=== PATIENT | female | born 1955 | race Caucasian/White ===

== ENCOUNTER → 2019-10-01 08:46 | Outpatient (CLI) | payer MEDICARE, SELFPAY ==
--- NOTE | ~2019-10-01 | MMUS_ITS ---
EXAMINATION: MM diagnostic cody BI w eusebio, US breast LT limited HISTORY: Possible left nipple discharge, family history of breast cancer in two sisters TECHNIQUE: Craniocaudal, mediolateral, and mediolateral oblique 3-D tomosynthesis images of the breas ts were performed and synthetic 2-D images were generated. CAD analysis was submitted and interpreted . High resolution limited left breast ultrasound was performed. COMPARISON: 07/19/2018, 06/22/2017, 06/07/2017, 04/14/2015, 12/20/2012 BREAST PARENCHYMAL COMPOSITION: The breasts are heterogeneously dense, which may obscure small masses . FINDINGS: MAMMOGRAPHIC FINDINGS: There is no evidence of suspicious mass, calcification, or architectural distortion in either breast to suggest malignancy. There has been no suspicious interval change. No mammographic correlate is i dentified for the possible left nipple discharge. ULTRASOUND: No suspicious sonographic correlate is identified for the patient's left nipple discharge. IMPRESSION: 1. No specific mammographic or sonographic correlate is identified for the patient's possible left ni pple discharge. Further evaluation at this time should be based on clinical assessment. Continued fol low-up physical examination is recommended. 2. Recommend routine screening mammography in one year. BI-RADS Category 1: Negative Reviewed, dictated and finalized at location A. IMPRESSION: 1. No specific mammographic or sonographic correlate is identified for the parul ent's possible left nipple discharge. Further evaluation at this time should be based on clinical assessment. Continued follow-up physical examination is randee mmended. 2. Recommend routine screening mammography in one year. BI-RADS Category 1: Negative
== END ==
PROVIDERS: Visit Provider Advanced Practice Midwife
DX: N64.59 Other signs and symptoms in breast (principal); N64.89 Other specified disorders of breast
CPT/HCPCS: 76642; 77062; 77066; G0279

== ENCOUNTER → 2020-09-21 08:08 | Outpatient (CLI) | payer MEDICARE, SELFPAY ==
--- NOTE | ~2020-09-21 | XR_ITS ---
EXAMINATION: XR abdomen/kub 1V EXAM DATE: 09/21/2020 09:02 INDICATION: Microscopic hematuria. TECHNIQUE: Frontal projection(s) of the abdomen for interpretation. There is no prior study for stevie sutherland. FINDINGS: There is moderate amount of colonic stool and gas. No small bowel dilation, nonobstructiv e bowel gas pattern. There are no suspicious calcifications identified. There is no organomegaly suspected. The bones are unremarkable. Lung bases unremarkable. IMPRESSION: Unremarkable abdomen x-ray exam. Reviewed, dictated and finalized at location A. ING SUIT MAKER
--- NOTE | ~2020-09-21 | CT_ITS ---
EXAMINATION: CT abdomen pelvis wo/w con EXAM DATE: 09/21/2020 09:02 INDICATION: Microscopic hematuria. TECHNIQUE: Spiral CT of the abdomen and pelvis was performed without contrast. The patient was then injected with small bolus intravenous Omnipaque 350, followed by delay of approximately 10 minutes to allow collecting system to opacify. A post contrast scan abdomen and pelvis was performed during inj ection of remaining contrast. A total of 130 cc intravenous contrast was administered. The dose-jerome th product (DLP) for this examination was 1311.53 mGy-cm. The exposure was tailored according to pat ient size (auto mA exposure control), and iterative reconstruction (ASIR) was used as additional dose reduction technique. Comparison is made to prior examination from 01/21/2016. FINDINGS: There is no hydronephrosis or nephrolithiasis. The kidneys enhance symmetrically. There a re no suspicious renal lesions. The calyces and opacified portions of ureters are unremarkable, with out filling defects or focal suspicious strictures. The bladder is unremarkable. The uterus is not identified and has likely been surgically resected. The liver, spleen, adrenal glands and pancreas are unremarkable. Gallbladder is unremarkable. No bi liary obstruction. There is no retroperitoneal or pelvic lymphadenopathy. There is small umbilical f at-containing hernia. The appendix is normal. The stomach and small bowel are unremarkable. There is expected amount of c olonic stool. No free intraperitoneal gas. The heart is normal in size. There are no pericardial or pleural effusions. Small amount of lingular atelectasis. Moderate disc disease at L2-3. There a re no osteoblastic or osteolytic lesions identified. IMPRESSION: 1. No suspicious genitourinary findings. Reviewed, dictated and finalized at location A. WARE CONFIGURATION ANALYST
[2020-09-21 08:37] LABS: Estimated Glomerular Filt Rate 50
== END ==
PROVIDERS: PCP Internal Medicine; Visit Provider Nurse Practitioner Family
DX: R31.29 Other microscopic hematuria (principal)
CPT/HCPCS: 74018; 74178; Q9967

== ENCOUNTER → 2020-11-27 12:15 | Outpatient (CLI) | payer MEDICARE, SELFPAY ==
--- NOTE | ~2020-11-27 | MM_ITS ---
EXAMINATION: MM screening cody BI w eusebio HISTORY: Screening TECHNIQUE: Craniocaudal and mediolateral oblique 3-D tomosynthesis images were obtained and synthetic 2-D images were generated. CAD analysis was submitted and interpreted. COMPARISON: Comparison to multiple prior studies sequentially, with oldest reviewed study dated 05/24. BREAST PARENCHYMAL COMPOSITION: The breasts are heterogeneously dense, which may obscure small masses . FINDINGS: There is no evidence of suspicious mass, calcification, or architectural distortion to sugg est malignancy in either breast. There has been no suspicious interval change. IMPRESSION: 1. No mammographic evidence of malignancy. 2. Recommend routine screening mammography in one year. BI-RADS Category 1: Negative Reviewed, dictated and finalized at location A.
== END ==
PROVIDERS: Visit Provider Advanced Practice Midwife
DX: Z12.31 Encounter for screening mammogram for malignant neoplasm of breast (principal)
CPT/HCPCS: 77063; 77067

== ENCOUNTER 2021-04-30 14:19 | Outpatient (CLI) | payer MEDICARE, SELFPAY ==
--- NOTE | ~2021-04-30 | CT_ITS ---
EXAMINATION: CT sinus wo con DATE: 04/30/2021 14:34 INDICATION: Headaches. Chronic sinusitis. TECHNIQUE: Computed tomography (CT) of the paranasal sinuses was performed without contrast. Iterativ e reconstruction technique was employed. Exam dose: 302.19 mGy-cm total exam DLP. COMPARISON: None FINDINGS: The nasal septum deviates rightward anteriorly and minimally leftward more posteriorly. There nasal turbinates are moderately prominent but symmetric in size. There is mild focal soft tissue thickening along the lower medial right maxillary sinus wall. 2.2 mm anterior wall left maxillary mucous retention cyst. Minimal mucoperiosteal thickening along the posterior wall of the left sphenoid sinus. The paranasal sinuses are otherwise normally developed and aerated. The ostiomeatal units are normally developed and patent. The mastoid air cells are normally developed and aerated bilaterally. Middle and inner ear apparatus appear normal bilaterally. IMPRESSION: Nasal septal deviation Moderately prominent but symmetric nasal turbinates Mild focal soft tissue thickening along the lower medial right maxillary sinus and 2.2 mm anterior wa ll left maxillary mucous retention cyst Minimal mucoperiosteal thickening along the posterior wall of the left sphenoid sinus Reviewed, dictated and finalized at Location A. Reviewed, dictated and finalized at location A. IMPRESSION: Nasal septal deviation Moderately prominent but symmetric nasal turbinates Mild focal soft tissue thickening along the lower medial right maxillary sinus and 2.2 mm anterior wall left maxillary mucous retention cyst Minimal mucoperiosteal thickening along the posterior wall of the left sphenoid sinus
== END 2021-04-30 14:20 | disposition home or self-care (01) ==
LOC: ANHIMG 14:22
PROVIDERS: PCP Internal Medicine; Visit Provider Otolaryngology
DX: J32.9 Chronic sinusitis, unspecified (principal); J34.2 Deviated nasal septum
CPT/HCPCS: 70486

== ENCOUNTER → 2021-06-24 11:10 | Outpatient (CLI) | payer MEDICARE, SELFPAY ==
--- NOTE | ~2021-06-24 | XR_ITS ---
XR chest 2V 06/24/2021 11:37 Indication: Cough Procedure: 2 view chest Comparison: 05/27/2019 Findings: There is lingular airspace disease, consistent with pneumonia. Heart size normal. Right melody g clear. No significant effusion or pneumothorax. Impression: 1: Lingular pneumonia. Reviewed, dictated and finalized at location B. F DEPUTY COURT CLERK Impression: 1: Lingular pneumonia.
== END ==
PROVIDERS: PCP Internal Medicine; Visit Provider Internal Medicine
DX: J18.9 Pneumonia, unspecified organism (principal)
CPT/HCPCS: 71046

== ENCOUNTER → 2022-01-04 12:29 | Outpatient (CLI) | payer MEDICARE, SELFPAY ==
--- NOTE | ~2022-01-04 | MM_ITS ---
EXAMINATION: MM screening cody BI w eusebio HISTORY: Screening TECHNIQUE: Craniocaudal and mediolateral oblique 3-D tomosynthesis images were obtained and synthetic 2-D images were generated. CAD analysis was submitted and interpreted. COMPARISON: Comparison to multiple prior studies sequentially, with oldest reviewed study dated 05/24. BREAST PARENCHYMAL COMPOSITION: The breasts are heterogenously dense, which may obscure small masses FINDINGS: There is no evidence of suspicious mass, calcification, or architectural distortion to sugg est malignancy in either breast. There has been no suspicious interval change. IMPRESSION: 1. No mammographic evidence of malignancy. 2. Recommend routine screening mammography in one year. BI-RADS Category 1: Negative Reviewed, dictated and finalized at location A.
== END ==
PROVIDERS: PCP Advanced Practice Midwife; Visit Provider Advanced Practice Midwife
DX: Z12.31 Encounter for screening mammogram for malignant neoplasm of breast (principal)
CPT/HCPCS: 77063; 77067

== ENCOUNTER → 2022-02-18 10:49 | Outpatient (CLI) | payer MEDICARE, SELFPAY ==
--- NOTE | ~2022-02-18 | US_ITS ---
EXAMINATION: US renal BI DATE: 02/18/2022 11:12 INDICATION: Chronic kidney disease TECHNIQUE: Multiple grayscale and Doppler ultrasound images of the kidneys were obtained. COMPARISON: 11/30/2009 FINDINGS: The right kidney measures 8.8 x 4.2 x 5.1 cm. The left kidney measures 9.7 x 5.2 x 4.8 cm. The kidneys demonstrate normal parenchymal echogenicity. There is no hydronephrosis. The bladder is i ncompletely distended but unremarkable in appearance. IMPRESSION: 1. Normal kidneys without hydronephrosis. Reviewed, dictated and finalized at location L.
== END ==
LOC: EXPGOSH 10:53 → EXPGOSHRAD 14:47
PROVIDERS: PCP Internal Medicine; Visit Provider Internal Medicine
DX: N18.30 Chronic kidney disease, stage 3 unspecified (principal)
CPT/HCPCS: 76775

== ENCOUNTER 2022-03-15 14:35 | Emergency (ER) | payer MEDICARE, SELFPAY ==
[2022-03-15] VITALS (15 sets, daily range): BP systolic 110–164; BP diastolic 72–89; PULSE 56–77; RESP 14–28; TEMP 36.6; O2SAT 95–100
--- NOTE | ~2022-03-15 | XR_ITS ---
EXAMINATION: XR chest 2V DATE: 03/15/2022 15:22 INDICATION: Midsternal chest pain TECHNIQUE: Frontal and lateral views of the chest are obtained COMPARISON: 06/24/2021 FINDINGS: The lungs are free of acute opacities. No pleural effusion or pneumothorax. The cardiomedia stinal silhouette is normal. There is moderate thoracic spondylosis. IMPRESSION: 1. No acute cardiopulmonary abnormality. Reviewed, dictated and finalized at location B.
--- NOTE | 2022-03-15 14:37 | ECG_ITS ---
Measurements Intervals [place] Rate: 74 P: 51 [place]: 155 QRS: 33 QRSD: 86 T: 29 QT: 358 QTc: 398 Interpretive Statements SINUS RHYTHM NORMAL ECG NO PREVIOUS ECG AVAILABLE FOR COMPARISON Electronically Signed On 03-15-2022 18:28:26 CDT by Adair Fuchs M.D.
[2022-03-15 15:19] LABS: INR 1.1; Prothrombin Time 14.2 Seconds (11.1-14.7)
[2022-03-15] MEDS: ASPIRIN 81 MG CHEWABLE TABLET 324 MG PO (15:53)
[2022-03-15 16:02] LABS: Basophils Absolute Auto 0.1 K/mm3 (0.0-0.1); Eosinophils Absolute Auto 0.1 K/mm3 (0-0.3); Eosinophils Percent Auto 1.4 % (0-4.4); Hemoglobin 13.2 g/dL (12.0-15.0); Immature Granulocyte Absolute 0.03 K/mm3 (0.00-0.031); Immature Granulocyte Percent A 0.4 % (0-0.5); Lymphocytes Absolute Auto 1.87 K/mm3 (0.9-3.2); Lymphocytes Percent Auto 25.7 % (18.3-44.2); Mean Corpuscular Hemoglobin 29.7 pg (26-34); Mean Corpuscular Volume 90.1 fl (80-100); Mean Platelet Volume 8.9 fl (7.4-10.4); Monocytes Absolute Auto 0.6 K/mm3 (0.1-0.6); Monocytes Percent Auto 8.1 % (2.6-8.5); Neutrophils Absolute Auto 4.6 K/mm3 (1.3-6.7); Neutrophils Percent Auto 63.4 % (45.5-73.1); Platelet Count Result 220 k/mm3 (150-375); Red Blood Count 4.44 M/mm3 (4.2-5.4); Red Cell Distribution Width 12.2 % (11.5-14.5); White Blood Count 7.3 K/mm3 (4.5-10.0)
--- NOTE | 2022-03-15 16:04 | ED.CHESTPAIN ---
HPI - Chest Pain General Chief Complaint: Chest Pain Stated Complaint: epigastric pain Time Seen by Provider: 03/15/22 14:44 History of Present Illness HPI narrative: Patient is a 66-year-old female who presents ER with concerns for possible coronary artery disease Patient reports she began having some low back pain yesterday as well as some intermittent upper back pain today. This been associated with burning epigastric discomfort that goes up into her throat. No exertional pain. She has tried Tums last night and today without improvement. No history of heart disease. No dyspnea on exertion. No diaphoresis. Symptoms are worse with laying back. Related Data Allergies Allergy/AdvReac Type Severity Reaction Status Date / Time TAPE Allergy Mild RASH Uncoded 02/03/22 10:10 Review of Systems Review of Systems: All systems reviewed & are unremarkable except as noted in HPI and below Constitutional: Constitutional: Denies chills and Denies fever(s) ENT: Denies as per HPI, Denies nasal congestion and Denies sore throat Cardiovascular: Cardiovascular: Reports chest pain, Denies rapid heart rate and Denies radiating jaw, neck or arm pain Respiratory: Respiratory: Denies cough and Denies dyspnea Gastrointestinal: Gastrointestinal: Denies abdominal pain, Reports heartburn, Denies nausea and Denies vomiting Musculoskeletal: Musculoskeletal: Reports back pain, Denies arthralgias and Denies joint swelling PMFSH Past Medical History Medical History Anxiety CKD (chronic kidney disease) stage 3, GFR 30-59 ml/min Dyslipidemia Encounter for cosmetic surgery History of mitral valve prolapse Osteopenia Tobacco use Surgical History Surgical History (Updated 03/15/22 @ 19:44 by Gilles Friedman MD) History of hysterectomy History of tonsillectomy Social History Social History Years smoked: 40 Smoking status: Current every day smoker (5 cigaretes a day) Tobacco type: cigarettes Second hand tobacco smoke exposure: Yes Alcohol intake: current Drinks per week: 2 Substance use: current Substance use type: marijuana Exam Narrative: GENERAL: Well-appearing, well-nourished, and in no acute distress. HEAD: Normocephalic, atraumatic. ENT: Mucous membranes moist. CHEST: Clear to auscultation. No respiratory distress. HEART: Regular rate and rhythm. Normal peripheral pulses. ABDOMEN: Soft, nontender, nondistended. EXTREMITIES: Normal range of motion. No edema. SKIN: Warm, dry, no rash. NEURO: Alert and oriented x3. PSYCH: Normal mood and affect. Course Course Emergency Course: Patient resting comfortably. Pain resolved with GI cocktail. Troponin negative x2. Symptoms felt to be related to acid reflux. Will start on PPI. Patient verbalized understanding treatment plan. Vital Signs Vital signs: Vital Signs Temperature 97.8 F 03/15/22 14:37 Pulse Rate 74 03/15/22 14:37 Respiratory Rate 18 03/15/22 14:37 Blood Pressure 164/85 H 03/15/22 14:37 Pulse Oximetry 100 03/15/22 14:37 Oxygen Delivery Room Air 03/15/22 14:37 Temperature 97.8 F 03/15/22 14:37 Pulse Rate 56 L 03/15/22 19:22 Respiratory Rate 14 03/15/22 19:22 Blood Pressure 121/83 03/15/22 19:22 Pulse Oximetry 100 03/15/22 19:22 Oxygen Delivery Room Air 03/15/22 14:37 MDM - Chest Pain Lab Data Result diagrams: 03/15/22 15:52 03/15/22 16:20 Labs: Lab Results 03/15/22 03/15/22 03/15/22 Range/Units 14:56 15:52 16:20 WBC 7.3 (4.5-10.0) K/mm3 RBC 4.44 (4.2-5.4) M/mm3 Hgb 13.2 (12.0-15.0) g/dL Hct 40.0 (37.0-47.0) % MCV 90.1 (80-100) fl MCH 29.7 (26-34) pg MCHC 33.0 (32-36) g/dl RDW 12.2 (11.5-14.5) % Plt Count 220 (150-375) k/mm3 MPV 8.9 (7.4-10.4) fl Immature Gran % (Auto) 0.4 (0-0.5) % Neut % (Auto) 63.4 (45.5-73.1) % Lymph % (Auto) 25.7 (
[2022-03-15] MEDS: BELLADONNA ALK/PHENOB ELIX 10 ML, MAG HYDROX/ALUMINUM HYD/SIMETH 30 ML, LIDOCAINE HCL 2... PO (16:38)
[2022-03-15 16:41] LABS: Alanine Aminotransferase 16 U/L (6-35); Albumin Level 4.3 g/dL (3.5-5.1); Alkaline Phosphatase 55 U/L (38-126); Anion Gap 8 mmol/L (8-16); Aspartate Amino Transferase 29 U/L (14-36); Bilirubin,Total 0.4 mg/dL (0.2-1.3); Blood Urea Nitrogen 23 mg/dL (7-17); Calcium 9.3 mg/dL (8.4-10.2); Carbon Dioxide 31 mmol/L (22-30); Chloride 100 mmol/L (98-107); Estimated CRCL calculation 39 ml/min; Estimated Glomerular Filt Rate 45; Glucose 110 mg/dL (65-110); Lipase 119 U/L (23-300); Potassium 3.8 mmol/L (3.4-5.0); Sodium 139 mmol/L (137-145)
[2022-03-15 16:49] LABS: Troponin I < 0.012 ng/mL (0.000-0.034)
--- NOTE | 2022-03-15 19:24 | PC.NURSE ---
Pt in restroom at this time. Vitals updated. Pt second trop melquiades and sent to lab. Pt no complaints at this time.
[2022-03-15 19:48] LABS: Troponin I < 0.012 ng/mL (0.000-0.034)
== END 2022-03-15 20:34 | disposition home or self-care (01) ==
PROVIDERS: Emergency Provider Emergency Medicine; PCP Internal Medicine
DX: K21.9 Gastro-esophageal reflux disease without esophagitis (principal); N18.9 Chronic kidney disease, unspecified; E78.5 Hyperlipidemia, unspecified; M85.80 Other specified disorders of bone density and structure, unspecified site; I34.1 Nonrheumatic mitral (valve) prolapse; Z90.710 Acquired absence of both cervix and uterus; F17.210 Nicotine dependence, cigarettes, uncomplicated
CPT/HCPCS: 36415; 71046; 80053; 83690; 84484; 85025; 85610; 85730; 93005; 99284; A9270

== ENCOUNTER → 2022-09-28 13:41 | Outpatient (CLI) | payer SELFPAY ==
--- NOTE | ~2022-09-28 | DEXA_ITS ---
Bone Density Report Name: TERRY QUINN Age: 67 Sex: Female Ethnicity: White Date of : 1955 Indication: osteopenia; parental hip fracture; height loss; hysterectomy; postmenopausal Referring Provider: Zafar, Edelmira Munoz Study: Bone densitometry was performed. Exam Date: September 28, 2022 Accession number: [id number] Bone Density: Region BMD T-score Z-score Classification AP Spine (L1, L4) 0.821 -2.0 0.0 Osteopenia Femoral Neck (Left) 0.562 -2.6 -0.9 Osteoporosis Total Hip (Left) 0.701 -2.0 -0.6 Osteopenia Femoral Neck (Right) 0.590 -2.3 -0.7 Osteopenia Total Hip (Right) 0.683 -2.1 -0.7 Osteopenia Total Hip Mean 0.692 -2.1 -0.7 Osteopenia World Health Organization criteria for BMD impression classify patients as: Normal (T-score at or above -1.0), Osteopenia (T-score between -1.0 and -2.5), or Osteoporosis (T-score at or below -2.5). 10-year Fracture Risk: FRAX not reported because: Some T-score for Spine Total or Hip Total or Femoral Neck at or below -2.5 Previous Exams: Region Exam Age BMD T-score BMD Change BMD Change Date g/cm2 vs Baseline vs Previous AP Spine(L1, L4) 09/28/2022 67 0.821 -2.0 -0.112* -0.004 05/22/2019 63 0.825 -1.9 -0.109* -0.026* 06/07/2017 61 0.851 -1.7 -0.082* -0.020 05/27/2011 55 0.871 -1.5 -0.063* -0.063* 08/18/2006 51 0.933 -0.9 Total Hip(Left) 09/28/2022 67 0.701 -2.0 -0.079* -0.030* 05/22/2019 63 0.731 -1.7 -0.049* 0.000 06/07/2017 61 0.731 -1.7 -0.049* -0.012 05/27/2011 55 0.743 -1.6 -0.037* -0.037* 08/18/2006 51 0.780 -1.3 Total Hip(Right) 09/28/2022 67 0.683 -2.1 -0.071* -0.003 05/22/2019 63 0.685 -2.1 -0.069* -0.016 06/07/2017 61 0.701 -2.0 -0.053* -0.053* 05/27/2011 55 0.754 -1.5 -0.001 -0.001 08/18/2006 51 0.754 -1.5 *Denotes significance at 95% confidence level, LSC for AP Spine = 0.022 g/cm2, LSC for Total Hip = 0.027 g/cm2 Clinical Information Provided by Patient: Parent has had a hip fracture Smokes Has used the following medications: Vitamin D, Calcium, MTV Has the following medical conditions: Hysterectomy Patient maximum height was 69 Menopause Age: 49 Drinks caffeinated beverages Onset of menses at age 15 Number of children 0
== END ==
PROVIDERS: PCP Internal Medicine; Visit Provider Internal Medicine Endocrinology, Diabetes & Metabolism
DX: M85.80 Other specified disorders of bone density and structure, unspecified site (principal); M85.88 Other specified disorders of bone density and structure, other site; M81.0 Age-related osteoporosis without current pathological fracture; M85.852 Other specified disorders of bone density and structure, left thigh; M85.851 Other specified disorders of bone density and structure, right thigh
CPT/HCPCS: 77080

== ENCOUNTER → 2023-05-24 14:15 | Outpatient (CLI) | payer MEDICARE, SELFPAY ==
--- NOTE | ~2023-05-24 | MM_ITS ---
EXAMINATION: MM screening cody BI w eusebio HISTORY: Screening mammogram, family history of breast cancer in her sister. TECHNIQUE: Craniocaudal and mediolateral oblique 3-D tomosynthesis images were obtained and synthetic 2-D images were generated. CAD analysis was submitted and interpreted. COMPARISON: 01/04/2022, 11/27/2020, 10/01/2019, 07/19/2018 BREAST PARENCHYMAL COMPOSITION: The breasts are heterogeneously dense, which may obscure small masses . FINDINGS: No suspicious mass, calcification, or architectural distortion are identified in either lyndsay ast to suggest malignancy. There has been no suspicious interval change. IMPRESSION: 1. No mammographic evidence of malignancy. 2. Recommend routine screening mammography in one year. BI-RADS Category 1: Negative Reviewed, dictated and finalized at location A.
== END ==
PROVIDERS: PCP Advanced Practice Midwife; Visit Provider Advanced Practice Midwife
DX: Z12.31 Encounter for screening mammogram for malignant neoplasm of breast (principal)
CPT/HCPCS: 77063; 77067

== ENCOUNTER 2023-11-06 12:25 | Outpatient (CLI) | payer MEDICARE, SELFPAY ==
--- NOTE | 2023-11-06 12:42 | ECHO_ITS ---
Patient Info Name: Sarah Souza Age: 68 years : 1955 Gender: Female Ht: 67 in Wt: 155 lbs BSA: 1.83 m2 HR: 67 bpm BP: 128 / 74 mmHg Technical Quality: Fair Exam Date: 11/06/2023 12:48 PM Exam Location: Echo Lab Patient Status: Outpatient Admit Date: 11/06/2023 Staff Ordering Physician: José Felton APRN Supervisor Network Control Operators: Otto Vieira RDCS Attending Provider: José Felton APRN Referring Physician: Jose Francisco PRICE; Exam Type: CA echo doppler color flow Study Info Indications I34.1 - Nonrheumatic mitral (valve) prolapse Complete two-dimensional, color flow and Doppler transthoracic echocardiogram is performed. Summary 1. Complete two-dimensional, color flow and Doppler transthoracic echocardiogram is performed. 2. Left ventricular chamber dimension is normal. 3. Left ventricular systolic function is normal, estimated at 60-65%. 4. The left ventricular diastolic function is abnormal. 5. E/e' 10 is mildly elevated. 6. There is trace tricuspid valve regurgitation. 7. No pulmonary hypertension, estimated pulmonary arterial systolic pressure is 20 mmHg. Left Ventricle E/e' 10 is mildly elevated. Left ventricular chamber dimension is normal. Left ventricular systolic function is normal, estimated at 60-65%. The left ventricular diastolic function is abnormal. Right Ventricle Right ventricular chamber dimension is normal. Right ventricular systolic function is normal. Left Atria Left atrial chamber dimension is normal. Right Atria Right atrial chamber dimension is normal. Aortic Valve The aortic valve is trileaflet. There is no aortic valve stenosis. There is no aortic valve regurgitation. Pulmonic Valve There is no pulmonic regurgitation. Mitral Valve No mitral valve prolapse. There is no mitral valve stenosis. There is no mitral valve regurgitation. Tricuspid Valve There is trace tricuspid valve regurgitation. No pulmonary hypertension, estimated pulmonary arterial systolic pressure is 20 mmHg. Pericardium/Pleural There is no pericardial effusion. Inferior Vena Cava Normal inferior vena cava with >50% collapse upon inspiration consistent with normal right atrial pressure, 5 mmHg. Aorta The aortic root size at the sinus of Valsalva is normal. Left Ventricular Outflow Tract Name Value Normal LVOT 2D LVOT Diameter 2.0 cm LVOT Doppler LVOT Peak Gradient 4 mmHg LVOT Mean Gradient 2 mmHg LVOT VTI 17 cm LVOT VTI/AV VTI Ratio 0.9 LVOT Stroke Volume 50 ml LVOT CO 3.4 l/min LVOT CI 1.9 l/min/m2 Pulmonic Valve Name Value Normal RVOT Doppler RVOT Peak Gradient 1 mmHg PV Doppler PV Peak Gradient
== END 2023-11-06 12:26 | disposition home or self-care (01) ==
PROVIDERS: PCP Nurse Practitioner Family; Visit Provider Nurse Practitioner
DX: I34.1 Nonrheumatic mitral (valve) prolapse (principal)
CPT/HCPCS: 93306

== ENCOUNTER 2024-05-28 07:08 | Outpatient (CLI) | payer MEDICARE, SELFPAY ==
--- NOTE | ~2024-05-28 | MM_ITS ---
EXAMINATION: MM screening cody BI w eusebio HISTORY: Screening TECHNIQUE: Craniocaudal and mediolateral oblique 3-D tomosynthesis images were obtained and synthetic 2-D images were generated. CAD analysis was submitted and interpreted. COMPARISON: Comparison to multiple prior studies sequentially, with oldest reviewed study dated 06/24. BREAST PARENCHYMAL COMPOSITION: Dense: The breasts are heterogeneously dense, which may obscure small masses FINDINGS: There is no evidence of suspicious mass, calcification, or architectural distortion to sugg est malignancy in either breast. There has been no suspicious interval change. IMPRESSION: 1. No mammographic evidence of malignancy. 2. Recommend routine screening mammography in one year. BI-RADS Category 1: Negative Reviewed, dictated and finalized at location B. ORATION PILOT
== END 2024-05-28 07:09 | disposition home or self-care (01) ==
PROVIDERS: PCP Nurse Practitioner Family; Visit Provider Nurse Practitioner Family
DX: Z12.31 Encounter for screening mammogram for malignant neoplasm of breast (principal)
CPT/HCPCS: 77063; 77067

== ENCOUNTER 2024-10-15 15:43 | Emergency (ER) | payer MEDICARE, SELFPAY ==
--- NOTE | 2024-10-15 15:54 | ED_ITS ---
HPI - Female Genitourinary General Chief complaint: Urogenital-Female Stated complaint: urinary irritation Time Seen by Provider: 10/15/24 16:05 Source: patient and RN notes reviewed Mode of arrival: ambulatory Limitations: no limitations History of Present Illness HPI Narrative: 69-year-old female presents with concern for urinary tract infection. She reports since yesterday she has had urinary frequency, dysuria. She denies any back pain, abdominal pain, fever, nausea, vomiting. MD elicited complaint: UTI Related Data Allergies Allergy/AdvReac Type Severity Reaction Status Date / Time adhesive tape Allergy Mild Rash Verified 10/15/24 15:55 Review of Systems Review of Systems: CONSTITUTIONAL: Denies malaise, chills, sweats, or fever. CARDIOVASCULAR: Denies chest pain, palpitations, or edema. RESPIRATORY: Denies cough or dyspnea. GASTROINTESTINAL: Denies abdominal pain, nausea, vomiting, diarrhea GENITOURINARY: Reports dysuria, frequency, urgency. Denies suprapubic pressure. Denies flank pain or hematuria. SKIN: Denies rash or itching. MUSCULOSKELETAL: Denies back pain or myalgia. All systems reviewed & are unremarkable except as noted in HPI and below PMFSH Past Medical History Medical History History of mitral valve prolapse CKD (chronic kidney disease) stage 3, GFR 30-59 ml/min Tobacco use Encounter for cosmetic surgery Osteopenia Anxiety Dyslipidemia Surgical History Surgical History History of hysterectomy History of tonsillectomy Social History Social History Smoking packs per day: 0.25 Smoking cigarettes per day: 5.0 Years smoked: 40 Smoking pack-years: 10.00 Smoking status: Current every day smoker (5 cigarettes a day) Tobacco type: cigarettes Second hand tobacco smoke exposure: Yes Alcohol intake: current Alcohol use details: emerson Substance use: current Substance use type: marijuana Do You Feel Safe in your Home?: Yes Lack of Transportation: No Lack of Food: Never True Current Housing: I Have Housing Concerned About Future Housing: No Difficulty Paying Gas/Electric Bills: No Difficulty Paying for Meds: No Currently Unemployed: No Education: Associate Degree Difficulty w/ Childcare or Family Care: No Living arrangements: with family Occupation/Education: retired Gender identity (if verbalized by the patient): Female Sexual Orientation (if Verbalized by the Patient): Straight or Heterosexual Spiritual care concerns: No Agree to blood products: Yes Comments At time of signature, agree with nursing past medical, surgical, social and family history. There is no relevant family history pertinent to the presenting complaint Exam Narrative: GENERAL: Well-appearing, well-nourished, and in no acute distress. HEAD: Normocephalic. EYES: PERRLA, conjunctivae clear. NECK: Supple. No lymphadenopathy CHEST: Clear to auscultation. No respiratory distress. HEART: Regular rate and rhythm. ABDOMEN: Soft, nontender upon palpation, nondistended, normal active bowel sounds, no palpable or pulsatile masses, no guarding. No CVA tenderness SKIN: Warm, dry, no rash. NEURO: Alert and oriented x3. PSYCH: Normal mood and affect Course Course Emergency Course: Patient is aware of diagnosis, understands and agrees to treatment plan. Anticipatory guidance given. Patient agrees to follow-up as directed and is aware of reasons to seek care at the emergency department. Portions of this record may have been created with voice recognition software Level of Care: Express Care Visit Vital Signs Vital signs: Reviewed. MDM - Female Genitourinary MDM Narrative Medical decision making narrative: Exam findings and UA show no acute concerns or changes; patient is non-toxic appearing and is in no distress. Patient is appropriate for outpatient treatment and follow-up. Differential Diagnosis Differential diagnosis: Likely urinary tract infection and cystitis Critical Care Time Critical Care Time Critical Care Time: No Discharge Plan Discharge Clinical Impression: Dysuria Patient Disposition: Home, Self-Care Condition: Stable Instructions: Antibiotic Form, Dysuria (ED) Additional Instructions: We will send a urine culture to the lab; if the culture identifies an organism that the antibiotic, you will receive a phone call from an urgent care staff member and an appropriate antibiotic will be prescribed. -Your symptoms should begin to improve within a day of starting antibiotics. But you should finish all the antibiotic pills you get. Otherwise your infection might come back. -Also recommend: increase water intake. Tylenol/ibuprofen as needed for pain or fever -Follow-up with your primary care provider for urine recheck or seek ER visit if condition worsens with high fever, nausea, vomiting and severe back pain. Patient Language: Salvadorean Prescriptions: New nitrofurantoin monohyd/m-cryst [Macrobid] 100 mg capsule 100 mg PO Q12H 5 Days Qty: 10 0RF Rx Instructions: must administer with a meal/food No Action fluticasone propionate [Flonase Allergy Relief] 50 mcg/actuation spray,suspension 2 spray intranasal BID Qty: 16 1RF Rx Instructions: administer into each nostril. Aim back/up/out azelastine 137 mcg (0.1 %) spray,non-aerosol 2 spray intranasal Q12H Qty: 30 3RF Rx Instructions: administer into each nostril atorvastatin 40 mg tablet 40 mg PO DAILY Qty: 90 1RF escitalopram oxalate 10 mg tablet 10 mg PO DAILY Qty: 90 1RF Follow-up/Referrals: Ramses Castillo CRNA [Primary Care Provider] - Time of Disposition: 16:13
== END 2024-10-15 16:15 | disposition home or self-care (01) ==
PROVIDERS: Emergency Provider Nurse Practitioner; PCP Nurse Anesthetist, Certified Registered
DX: R30.0 Dysuria (principal); N18.30 Chronic kidney disease, stage 3 unspecified; F17.210 Nicotine dependence, cigarettes, uncomplicated
CPT/HCPCS: 87086; 87186; 99213; G0463

== ENCOUNTER 2024-10-22 08:49 | Outpatient (CLI) | payer MEDICARE, SELFPAY ==
--- NOTE | ~2024-10-22 | DEXA_ITS ---
Bone Density Report Name: TERRY QUINN Age: 69 Sex: Female Ethnicity: White Date of : 1955 Indication: osteopenia; parental hip fracture; hysterectomy; Referring Provider: SUSHANT FAUST Study: Bone densitometry was performed. Exam Date: October 22, 2024 Accession number: [id number] Bone Density: Region BMD T-score Z-score Classification AP Spine(L1, L3, L4) 0.846 -1.9 0.3 Osteopenia Femoral Neck (Left) 0.603 -2.2 -0.4 Osteopenia Total Hip (Left) 0.720 -1.8 -0.3 Osteopenia Femoral Neck (Right) 0.581 -2.4 -0.6 Osteopenia Total Hip (Right) 0.744 -1.6 -0.1 Osteopenia Total Hip Mean 0.732 -1.7 -0.2 Osteopenia World Health Organization criteria for BMD impression classify patients as: Normal (T-score at or above -1.0), Osteopenia (T-score between -1.0 and -2.5), or Osteoporosis (T-score at or below -2.5). 10-year Fracture Risk(1): Major Osteoporotic Fracture 22% Hip Fracture 7.0% Reported Risk Factors: [place] (), Neck BMD=0.581, BMI=24.1, parental fracture (1) FRAX(R) Version 3.08. Fracture probability calculated for an untreated patient. Fracture probability may be lower if the patient has received treatment. Previous Exams: Region Exam Age BMD T-score BMD Change BMD Change Date g/cm2 vs Baseline vs Previous AP Spine (L1,L3-L4) 10/22/2024 69 0.846 -1.9 -0.032 (-3.6%) -0.029 (-3.3%) 04/14/2015 59 0.875 -1.6 -0.003 (-0.4%) -0.003 (-0.4%) 12/20/2012 57 0.878 -1.6 Total Hip(Left) 10/22/2024 69 0.720 -1.8 -0.038 (-5.0%) -0.023 (-3.2%) 04/14/2015 59 0.743 -1.6 -0.015 (-1.9%) -0.015 (-1.9%) 12/20/2012 57 0.758 -1.5 Total Hip(Right) 10/22/2024 69 0.744 -1.6 -0.011 (-1.5%) 0.007 (0.9%)# 04/14/2015 59 0.737 -1.7 -0.018 (-2.3%) -0.018 (-2.3%) 12/20/2012 57 0.755 -1.5 *Denotes significance at 95% confidence level, LSC for AP Spine = 0.022 g/cm2, LSC for Total Hip = 0.027 g/cm2 # Denotes dissimilar scan types or analysis methods Clinical Information Provided by Patient: Parent has had a hip fracture Has used the following medications: Boniva (i.e. ibandronate), Vitamin D, Calcium Has the following medical conditions: Hysterectomy Patient maximum height was 69 Menopause Age: 49 Drinks caffeinated beverages Onset of menses at age 16 Number of children 0 Impression: The patient has low bone mass, based on the Right Femoral Neck T-score. The patient has an estimated ten-year risk of hip fracture of 7% and an estimated ten-year risk of major fracture of 22%, based on the WHO FRAX algorithm. The patient has risk factors, including: parental hip fracture. No significant bone loss was observed. Discussion: BONE DENSITY IS LOW AT ONE OR MORE SKELETAL SITES. THE PATIENT'S BMD AND CLINICAL RISK FACTORS CONTRIBUTE TO THIS PATIENT'S HIGH RISK OF FRACTURE. This patient's lowest T-score is low at one or more skeletal sites. It meets the World Health Organization's (WHO) criteria for ?low bone mass? (T-score between -1.0 and -2.5). The patient's 10-year risk of hip fracture and 10 year risk of a major osteoporotic fracture as calculated by FRAX exceeds the threshold where pharmacological therapy is recommended by the National Osteoporosis Foundation (NOF). However, all treatment decisions require clinical judgment and consideration of individual patient factors, including patient preferences, comorbidities, previous drug use, risk factors not captured in the FRAX model (e.g., frailty, falls, vitamin D deficiency, increased bone turnover, interval significant decline in bone density) and possible under or overestimation of fracture risk by FRAX. The patient should follow a healthful lifestyle (good nutrition with adequate calcium and vitamin D, and appropriate weight-bearing exercise). Follow-Up: Consider a repeat BMD and Vertebral Fracture Assessment (VFA) exam in 2 years or sooner if medically necessary, to reassess this patient's status. Reported by: TRUPTI on 10/22/2024 9:30:00 AM. Reviewed, dictated and finalized at location [facility]
--- OUTSIDE RECORDS SUMMARY | 2024-10-22 09:08 | XMS_ITS | Data Portability ---
Author Organization [facility] Address [address] [place] [address] [place] [address] Care Team Providers Care Web Marketing Strategist Name Role Phone LAURIE MILLER Primary Care Provider Assessment No assessment recorded. Plan of Treatment Reminders Order Date Submit Date Provider Last Modified By Organization Details Last Modified Time Details Appointments None recorded. Lab None recorded. Referral None recorded. Procedures None recorded. Surgeries None recorded. Imaging MAMMO, diagnostic , digital, bilateral 2020 [facility], [address], [place], [address], 17:07:40 Medication Orders None recorded. Patient TargetsNo targets recorded. Patient InstructionsNo instructions recorded. Reason for Referral None Reported. Results Created Date Observation Date Name Description Value Unit Range Abnormal Flag Note LastModifiedBy Organization Detail LastModifiedTime 12/26/19 20 12/30/2019 pap, LB Pap test thin prep Negati ve for Intrae pithel ial Lesion or Malign marshall normal ACCES ADDISON #: [id number] Sourc e: Vagin al LMP: 07/24 Date Taken : 12/25 Speci men Type: ThinP rep Vial Date Repor abby: Clini zara Data: Hyst: Total Cytot ech: Roney vallecillo N. Walke r,CT( ASCP) Date Repor abby: Speci men Adequ acy: Satis facto ry for evalu ation Gener al Categ oriza tion: NEGAT TAYLER FOR INTRA EPITH ELIAL LESIO N OR MALIG BRICE Inter preta tion/ Resul t: Atrop hy Comme nts/R ecomm endat ions: Infla mmati on This speci men has been sherrill zed by the ThinP rep Imagi ng Elisabeth m, an inter activ e compu ter elisabeth m which eduardo ts the lab in the scree cayla of ThinP rep Pap Test slide walt payton imagi ng, the slide was revie wed by a Cytot echno logis t and/o r Patho logis t. D N A A S S A Y S R E P O R T TEST NAME RESUL TS ----- ---- ----- -- HPV High Risk Karen calderon (TMA) ThinP rep Vial The human papil lomav irus (HPV) High Risk Karen calderon is an FDA-a pprov ed in-vi tro ampli fied nucle ic acid test for the quali tativ e detec tion of E6/E7 viral mRNA. Resul ts nguyễn d be corre lated with patie nt prese ntati on, histo ry, cervi zara cytol ogy and other clini zara and labor atory findi ngs. See https ://[employer]/s ites/ defau lt/fi les/2 018-0 3/AW- 35072 _002_ 01.pd f for henna calderon. Test perfo rmed by [facility], d/b/a [facility], [address] , [place] [address] , Kate Harper ra, DO, [facility]. HPV High Risk *HPV NOT DETEC ABBY (TYPE S 16, 18, 31, 33, 35, 39, 45, 51, 52, 56, 58, 59, 66, 68) *HPV: The human papil lomav irus (HPV) High Risk Karen calderon is an FDA-a pprov ed in-vi tro ampli fied nucle ic acid test for the quali tativ e detec tion of E6/E7 viral mRNA. Resul ts shoul d be corre lated with patie nt prese ntati on, histo ry, cervi zara cytol ogy and other clini zara and labor atory findi ngs. See https ://ww [employer]. cinvolve/s ites/ pauline lt/fi les/2 018-0 3/AW- 15943 _002_ 01.pd f for henna barron larryr carlos calderon. Test perfo rmed by [employer] [facility] [employer] [facility], d/b/a Syl rougiovanni, [address], [place] [address] , Kate Harper ra, DO, Labor atory Dire tor. End of t Techn ical servi zuly provi ded by [employer] [facility]ated [facility] [employer], d/b/a [facility], [address] [place] [address] Nick Ricks MD, [facility] ator Dire tor. Case revie wed and diagn osis rende red at [facility] [employer] [facility], d/b/a [facility] roup, [address] [place] [address] Nick Ricks MD, [facility] atorTouchdown [employer] [facility] tor. CONFI DENTI AL Not Available [facility] ([facility]) [address] [place] [address], [place], [address], 12/30/2019 10:53:17 12/26/19 20 12/27/2019 HPV DNA, high- risk HPV high risk NOT DETECT ED normal Not Available [facility] ([facility]) [address] [place] [address], [place], [address], 12/30/2019 10:53:18 11/28/19 21 11/27/2020 MAMMO , scree cayla, bilat eral No observ ation record ed. [facility] [address], [place], [address], 12/13/2020 10:23:02 01/05/20 22 01/04/2022 imagi ng/di agnos tic resul t No observ ation record ed. [facility] [address], [place], [address], 01/27/2022 17:19:28 06/01/20 22 DEXA, axial skele ton + verte bral fract ure asses sment No observ ation record ed. [email or web address] Not Available 06/01 15:13:45 05/25/20 23 05/24/2023 MAMMO , scree cayla, bilat eral No observ ation record ed. [email or web address] [facility] [address], [place], [address], 07/27/2023 16:57:54 Result Notes None recorded. Problems Name Problem SNOMED Code Status Onset Date Resolution Date Notes Provider Name and Address Organization Details Recorded Time Clinical finding Completed 201903/22/2021 Other specifie d disorder s of breast;R ecorded Elsewher e: No Locat ion: [facility] S ource: EHR Mechanical Applications Engineer jeffrey: Kitty Chow ce ID: 0001 Nacho lable Time: 02:30:00 PM Dee Dee duran [facility] 15:48:06 Speciali zed medical examinat ion Completed 201203/22/2021 Gynecolo gical Examinat ion;Ottoniel rded Elsewher e: No Locat ion: [facility] S ource: EHR Mechanical Applications Engineer jeffrey: Kitty Santosti ce ID: 0001 Nacho lable Time: 01:00:00 PM Dee Dee duran [facility] 15:48:51 Screenin g for malignan t neoplasm of cervix Completed 201003/22/2021 Screenin g for malignan t neoplasm s of the cervix;R ecorded Elsewher e: No Locat ion: [facility] S ource: EHR Mechanical Applications Engineer jeffrey: Kitty Santosti ce ID: 0001 Nacho lable Time: 03:00:00 PM Dee Dee duran [facility] 1 15:48:02 Screenin g for malignan t neoplasm of rectum Completed 201003/22/2021 Screenin g for malignan t neoplasm s of the rectum;R ecorded Elsewher e: No Locat ion: Mohsen lenz [facility] S ource: EHR Mechanical Applications Engineer jeffrey: N Practi ce ID: 0001 Nacho lable Time: 03:00:00 PM Dee Dee duran [facility] 15:48:[address] Concept Completed 201703/22/2021 Encntr for ob/gyn exam (general ) (routine ) w/o abn findings ;Recorde d Elsewher e: No Locat ion: [facility] yoanna [facility] S ource: EHR Mechanical Applications Engineer jeffrey: N Practi ce ID: 0001 Nacho lable Time: 11:15:00 AM Dee Dee duran [facility] 15:48:[address] Concept Completed 201703/22/2021 Encntr for general adult medical exam w/o abnormal findings ;Recorde d Elsewher e: No Locat ion: [facility] S ource: EHR Mechanical Applications Engineer jeffrey: N Practi ce ID: 0001 Nacho lable Time: 11:15:00 AM Dee Dee duran [facility] 15:48:10 Galactor connie not associat ed with childbir th [id number] Completed 201903/22/2021 Galactor connie not associat ed with childbir th;Recor ded Elsewher e: No [facility] S ource: EHR Mechanical Applications Engineer jeffrey: N Practi ce ID: 0001 Nacho lable Time: 08:29:31 AM Dee Dee duran [facility] 15:48:55 Microsco pic hematuri a [id number] Completed 201003/22/2021 MICROSCO PIC HEMATURI A;Record ed Elsewher e: No Locat ion: Mohsen lenz [facility] S ource: EHR Mechanical Applications Engineer jeffrey: N Practi ce ID: 0001 Nacho lable Time: 03:00:00 PM Dee Dee duran [facility] 15:48:04 Micturit ion finding Completed 201703/22/2021 Urinary incontin ence;Rec orded Elsewher e: No Locat ion: Mohsen lenz [facility] S ource: EHR Mechanical Applications Engineer jeffrey: N Practi ce ID: 0001 Nacho lable Time: 11:15:00 AM Dee Dee duran [facility] 15:48:07 Osteopor osis [id number] Completed 201003/22/2021 Osteopor osis;Rec orded Elsewher e: No Locat ion: Moses yoanna [facility] S ource: EHR Mechanical Applications Engineer jeffrey: N Tomti ce ID: 0001 Nacho lable Time: 03:30:00 PM Dee Dee duran [facility] 15:48:53 Problem Notes None recorded. Procedures Surgical History Date Name Laterality Status Provider Name and Address Organization Details Recorded Time 11/28/19 21 Date of Last Mammogram completed Dee Dee Fairborn [facility] 03/22/2021 15:49:44 11/28/19 [facility] 03/22/2021 15:49:55 02/23/20 20 Most Recent Bone Density completed [facility] 03/23/2021 10:27:26 12/26/19 20 Date of [facility] 03/22/2021 15:49:28 05/02/20 16 Date of Last [facility] 03/23/2021 10:27:27 01/01/20 16 completed Dee Dee Chappell [facility] 03/22/2021 15:53:21 07/24/19 05 hysterectomy completed [facility] 12/25/2019 14:15:23 07/24/19 05 total abdominal hysterectomy with bilateral salpingo-oophore ctomy completed [facility] 12/25/2019 14:17:41 07/24/18 92 liposuction of subcutaneous tissue completed [facility] 12/25/2019 14:14:41 07/24/18 92 biopsy of breast completed [facility] 12/25/2019 14:14:35 Imaging Results Imaging Date Name Status LastModified by Organiz ation Details LastModified Time 11/27/2020 MAMMO, screening, bilateral completed [facility] [address], [place], [address], 12/13/2020 10:23:02 01/04/2022 imaging/diagnos tic result completed [facility] [address], [place], [address], 01/27/2022 17:19:28 06/01/2022 DEXA, axial skeleton + vertebral fracture assessment completed [email or web address] Information not available 06/01/2022 15:13:45 05/24/2023 MAMMO, screening, bilateral completed [address] [facility] [address], [place], [address], 07/27/2023 16:57:54 Procedure Notes None recorded. Medical Equipment None Reported. Allergies No known drug allergies Medications Name Sig Start Date Stop Date Status Note LastModified by Organization Details LastModified Time escitalop reema oxalate 10 mg tabs 03/23 completed Not Available Not Available Not Available atorvasta tin calcium 10 mg tabs 03/23 completed Not Available Not Available Not Available citalopra m hydrobrom mira 10 mg tabs active Not Available Not Available Not Available amoxicill in 500 mg capsule TAKE 1 CAPSULE BY MOUTH EVERY 8 HOURS 03/23 completed Not Available Not Available Not Available atorvasta tin 10 mg tablet TAKE 1 TABLET BY MOUTH DAILY 03/23 completed Not Available Not Available Not Available alprazola m 1 mg tablet 03/23 completed Not Available Not Available Not Available Suprax 400 mg tablet take 1 tablet (400MG) by oral route every day 05/10 completed Prescrib ed Elsewher e: No Locat ion: Mohsen lenz [facility] odify By: doug lindquistunter DateTime : 01/09/20 13 03:56:26 PM Not Available Not Available Not Available hydrocort isone 2.5 % topical cream with perineal applicato r APPLY RECTALLY TO THE AFFECTED AREA DAILY NEEDED FOR HEMORRHO IDS 03/23 completed Not Available Not Available Not Available benzonata te 100 mg capsule TAKE 1 CAPSULE BY MOUTH THREE TIMES DAILY 03/23 completed Not Available Not Available Not Available Vitamin D2 1,250 mcg (50,000 unit) capsule take 1 capsule (92757LA ITS) by oral route every week 05/10 completed Prescrib ed Elsewher e: No Locat ion: Mohsen lenz [facility] odify By: doug lindquistunter DateTime : 01/23/20 13 10:47:56 AM Not Available Not Available Not Available Paxil 10 mg tablet take 1 tablet by oral route every day 09/16 completed Prescrib ed Elsewher e: Yes Loca tion: Mohsen lenz [facility] odify By: cameron Copeland r DateTime : 06/30/20 11 03:30:00 PM Not Available Not Available Not Available loratadin e 10 mg tablet TAKE 1 TABLET BY MOUTH EVERY DAY 03/23 completed Not Available Not Available Not Available escitalop reema 10 mg tablet active Not Available Not Available Not Available escitalop reema 5 mg/5 mL oral solution take 10 millilit er by oral route every day 03/22 completed Prescrib ed Elsewher e: Yes Loca tion: Mohsen lenz [facility] odify By: cameron Copeland r DateTime : 09/16/19 02:30:00 PM Not Available Not Available Not Available escitalop reema 5 mg tablet TAKE 1 TABLET BY MOUTH DAILY 03/23 completed Not Available Not Available Not Available amlodipin e 10 mg-atorva statin 10 mg tablet active Not Available Not Available No t Available nitrofura ntoin monohydra te/macroc rystals 100 mg capsule TAKE 1 CAPSULE BY MOUTH EVERY 12 HOURS FOR 5 DAYS. MUST TAKE WITH MEAL/KRISTOPHER D 03/23 completed Not Available Not Available Not Available Boniva 150 mg tablet take 1 tablet (150MG) by oral route every month 01/01 completed Prescrib ed Elsewher e: No Locat ion: [facility] odify By: melida samuel DateTime : 11/17/19 12 12:48:31 PM Not Available Not Available Not Available Fish Oil 100 mg-160 mg-1,000 mg capsule 05/10 completed Prescrib ed Elsewher e: Yes Loca tion: [facility] odify By: doug mcmahan DateTime : 06/30/20 11 03:30:00 PM Not Available Not Available Not Available Vitals Date Recorded Body height Body mass index (BMI) Body weight Systolic blood pressure Diastolic blood pressure Provider Name and Address Organization Details Last Updated DateTime 12/26/2019 172.72 cm 23.3 kg/m2 06172.63 g 123 mm[Hg] 81 mm[Hg] Cindy Bryson [facility] 0 10:16:10 Date Recorded Body height Body mass index (BMI) Body weight Systolic blood pressure Diastolic blood pressure Provider Name and Address Organization Details Last Updated DateTime 03/23/2021 172.72 cm 22.8 kg/m2 60166.86 g 122 mm[Hg] 81 mm[Hg] Dee Dee Chappell [facility] 1 10:26:58 Social History Question Answer Notes LastModified by Organizat ion Details LastModified Time Tobacco Smoking Status Current Every Day Smoker Dee Dee duran, [facility] 03/23/2021 10:27:32 Do You Have An Advance Directive? No [email or web address] Information not available 03/23/2021 What Is Your Level Of Alcohol Consumption? Occasional [email or web address] Information not available 12/26/2019 How Many Years Have You Consumed Alcohol? 40 [email or web address] Information not available 03/23/2021 Are You Blind Or Do You Have Difficulty Seeing? No Information not available 03/23/2021 What Is Your Level Of Caffeine Consumption? Occasional Information not available 03/23/2021 In The 14 Days Before Symptom Onset, Have You Had Close Contact With A Laboratory-confir med COVID-19 While That Case Was Ill? No [email or web address] Information not available 03/23/2021 In The 14 Days Before Symptom Onset, Have You Had Close Contact With A Person Who Is Under Investigation For COVID-19 While That Person Was Ill? No [email or web address] Information not available 03/23/2021 Have You Been To An Area Known To Be High Risk For COVID-19? No Information not available 03/23/2021 Are You Deaf Or Do You Have Serious Difficulty Hearing? No [email or web address] Information not available 03/23/2021 What Type Of Diet Are You Following? REGULAR [email or web address] Information not available 03/23/2021 Which Illicit Or Recreational Drugs Have You Used? Marijuana Edibles [email or web address] Information not available 03/23/2021 What Is The Highest Grade Or Level Of School You Have Completed Or The Highest Degree You Have Received? [id number] [email or web address] Information not available 03/23/2021 What Is Your Occupation? Retired [email or web address] Information not available 03/23/2021 Are There Any Guns Present In Your Home? Yes [email or web address] Information not available 03/23/2021 Do You Use Your Seat Belt Or Car Seat Routinely? Yes [email or web address] Information not available 03/23/2021 Do You Have Smoke And Carbon Monoxide Detectors In Your Home? Yes Information not available 03/23/2021 Do You Feel Stressed (tense, Restless, Nervous, Or Anxious, Or Unable To Sleep At Night)? [id number] [email or web address] Information not available 03/23/2021 Do You Use Sunscreen Routinely? Yes [email or web address] Information not available 03/23/2021 Sex: Unknown Functional Status Question Answer Note LastModified by Organization D etails LastModified Time Are you able to walk? YESWOREST [email or web address] Information not available 03/23/2021 What is your exercise level? Heavy [email or web address] Information not available 03/23/2021 Mental Status None recorded. Family History Relationship Description Onset Age of this Age Resolved Age Notes LastModified by Organization Details LastModified Time Maternal Aunt Family history of breast cancer 59 Not available 2020 10:27:05 Mother Family history of stroke Not available 2020 10:27:05 Sister Family history of breast cancer 37 mastec aries, T,N, M deceas ed [email or web address] Not available 03/23/2021 10:27:05 Sister Anxiety disorder [email or web address] Not available 2020 10:27:05 Unspecified Relation Malignant tumor of pharynx Not available 2020 10:27:05 Unspecified Relation Malignant neoplasm of brain [email or web address] Not available 2020 10:27:05 Medical History Condition Response Other Y Gynecological History Statement/Question Response Date of Last Mammogram 11/27/2020 N STIs/STDs N HPV Vaccine N 11/27/2020 Current Control Method Menopause Date of Last Colonoscopy 05/02/2016 Most Recent Bone Density 02/23/2020 Sexually Active? Y Age of first menstrual cycle 15 Date of Last Pap Smear 12/26/2019 Sexual Problems? N LMP Definite 07/24/2015 N Obstetrics History GPAL:G 0 P 0 0 0 0 Past Encounters Encounter ID Performer Location Encounter Start Date Encounter Closed Date Diagnosis/Indication Diagnosis SNOMED-CT Code Diagnosis ICD10 Code Diagnosis Note [id number] Vivian Roa [facility] [address] [address] 12/26/2019 09:54:15 01/15/2020 09:49:56 Gynecologic examination 21361204 Z01.419 Take Calcium with Vitamin D 12-1500mg daily. Do monthly self breast exams. It is advised to get annual flu shot in the fall and she could obtain at [facility] or [facility] clinic. If you haven't received the Tdap vaccine in the last 10 years you should obtain one as well. Have mammogram yearly, bone density every 2-3 years and colonoscop y every 5-10 years depending on findings and history. Engage in daily exercise of low impact aerobic exercise 45-60 minutes 4-5 times weekly. Avoid tobacco and illicit drugs as well as using moderation with alcohol intake less than 1-2 8 oz beverages daily. This lifestyle behavior pattern will lead to less health conditions and longer life span. If BMI greater than 25 weight watchers or dietary consult advised. Questions have been answered. Patient appears to understand instructio ns, but if you have any further questions call or respond to this email. [id number] Vivian [address] [facility] [address] [address] 03/23/2021 10:02:57 03/23/2021 23:22:43 Mastodynia of bilateral breasts [id number] N64.4 Diagnostic cody and u/s ordered. If nl will rtc in 6 weeks. If abnormal imaging will schedule with specialist lars If nl imaging but pain persists at 6 week f/u will need to see specialist . Pt will call us 2 days after imaging to ensure we have received the results. Health Concerns Section Related Observation LastModified by Organization Detai ls LastModified Time None Recorded Concern Status LastModified by Organization Details LastModified Time None Recorded Advance Directives Directive N: Payers Encounter Date Sequence Insurance Name Policy Number Policy Akbar Covered Member ID Akbar Member ID Guarantor Name 12/26/2019 1 [place] Sarah Souza [id number] Sarah Souza 12/26/2019 2 [employer] OPTIONS (MEDICARE SUPPLEMENT) Sarah Souza [id number] Sarah Souza 03/23/2021 1 [place] Sarah Souza [id number] Sarah Souza 03/23/2021 2 [employer] OPTIONS (MEDICARE SUPPLEMENT) Sarah Souza [id number] Sarah Souza Notes Date Note Type Note Provider Name and Address Organization Details Recorded Time 12/26/2019 text/html Annual GYNReport ed bypatient.Menstrua l cycle:Normal menses Urinary symptoms:No hematuria; No incontinence Vulva:No genital lesion Vagina:Normal vaginal discharge Breast:No breast pain; No breast lump; No nipple discharge Sexual complaints:No sexual complaints; No pain during intercourse; Normal libido Menopausal Symptoms:No menopausal symptoms; Normal vaginal lubrication Psychological symptoms:No depression; No anxiety; No PMDD Vivian duran [facility] 01/02/2020 17:44:50 03/23/2021 text/html 2-3 weeks has ocasio d burning in both breasts. A little worse on the left. History of breast cancer. Vivian duran [facility] 03/23/2021 16:08:51 OBGyn Episode No OBEpisode recorded.
--- OUTSIDE RECORDS SUMMARY | 2024-10-22 09:08 | XMS_ITS | Continuity of Care Document ---
Author Organization [facility] Address [address] [place] [address] [place] [address] Phone Care Team Providers Care Biscuit Machine Operator Name Role Phone Hugo Prince DO Unavailable Unavailable Advance Directives Directive Yes / No Effective Date File Name No Information Encounters Encounter Description Practice Location Reason(s) For Visit Diagnoses Date Provider Providers Copied on Encounter [facility], [address], [place], [place], [id number], [place] tel:[phone] [facility] No Information Niki Pinon. [address] [facility], [place], [address], [place]. tel: [phone] Family History Family Member Type Diagnosis Age At Onset No Information Payers Payer name Insurance type Covered alliance party ID Authoriza tion(s) BCBS [place] Commercial [id number] Social History Type Description Quantity Date Captured Comments Sex Female Smoking Status No Information Chief Complaint And Reason For Visit No Information Reason For Referral Reason For Referral No Information History Of Present Illness Encounter Date Complaint History Of Prese nt Illness No Information Functional Status Date Functional Assessmen t No Information Instructions Date Instruction Additional Infor mation No Information Assessments Type Assessment Date No Information Patient Care Teams Name Effective Dates (start - stop) Status Members No Information
--- OUTSIDE RECORDS SUMMARY | 2024-10-22 09:08 | XMS_ITS | Clinical Summary ---
Author Organization [facility] Address [address] [place] [address] Care Team Providers Care Clerk Name Role Phone Jeny Mclean MD Unavailable [phone] Bhaskar Castillo MD Primary Care Provider [phone] Allergies No known active allergies Medications atorvastatin (LIPITOR) 10 mg tablet 03/11/2020 Active escitalopram (LEXAPRO) 10 mg tablet 07/24/2018 Active cholecalciferol, vitamin D3, (VITAMIN D3 ORAL) Take by mouth Active calcium carbonate (CALCIUM 500 ORAL) Take by mouth Active Active Problems Problem Noted Date Diagnosed Date Age-related osteoporosis wit hout current pathological fracture 05/22/2023 Assessment & Plan (05/22/2023 12:10 PM CDT): Worsening osteoporosis Status post Boniva therapy for 5 years [id number] Risk factors age, , postmenopausal, smoking Recommend fall precautions Recommend to keep working on her exercises, weight and balance training today Give instructions on how to be safe during her exercises - continue current calcium and vitamin-D supplementations - discussed about osteoporotic medication options - consider doing IV bisphosphonate therapy - will do IV Reclast therapy at [facility] ( discussed mechanism of action, side effects and benefits ) - advised patient to see her dentist before considering infusion therapy - patient will call office and notify us when she is cleared by her dentist - CMP lab before Reclast infusion - follow-up in 1 year Surgical History Surgery Date Site/Laterality Comments HYSTERECTOMY Medical History Medical History Date Comments Osteoporosis Family History Medical History Relation Name Comments Leukemia Mother Cancer Mother's Sister Hypertension Neg Hx Thyroid disease Neg Hx Relation Name Status Comments Mother Mother's Sister Social History Tobacco Use Types Packs/Day Years Used Date Smoking Tobacco: Every Day Cigarettes 0.3 30 Smokeless Tobacco: Never Tobacco Cessation:Ready to Q uit: Not Asked; Counseling Given: Not Answered Personal Safety Answer Date Recorded Getting School Help Needed Not on file 09/16 Comments Unknown Sex and Gender Information Value Date Recorded Sex Assigned at Not on file Legal Sex Female 12:09 AM [employer] Gender Identity Female 08/16/2019 3:57 PM [employer] Sexual Orientation Straight 08/16/2019 3: 57 PM [employer] Obstetrics History Last Filed Vital Signs Vital Sign Reading Time Taken Comments Blood Pressure 130/70 05/22/2023 10:30 AM CDT Pulse 74 05/22/2023 10:30 AM CDT Temperature 36.9 C (98.5 F) 04/12/2021 1:13 PM CDT Respiratory Rate 17 05/22/2023 10:30 AM CDT Oxygen Saturation - - Inhaled Oxygen Concentration - - Weight 68.9 kg (152 lb) 05/22/2023 10:30 AM CDT Height 170.2 cm (5' 7 ) 05/22/2023 10:30 AM CDT Body Mass Index 23.81 05/22/2023 10:30 AM CDT Plan of Treatment Health Maintenance Due Date Last Done Comments Breast Cancer Screening-Mammogram 1955 Colon Cancer Screening-Colonoscopy 1955 Depression Screening 1955 Fall Risk Assessment 1955 Hepatitis C Screening 1955 DTaP/Tdap/Td Vaccine (1 - Tdap) 1965 Hepatitis B Screening 1972 Zoster Vaccine (2 of 2) 01/06/2019 11/11/2018 Well Visit 65+ 2019 Osteoporosis Screening-Bone Density Scan 04/12/2023 04/12/2021, 03/16/2020 Influenza Vaccine (#1) 2024 05/22/2017, 2014 Pneumococcal vaccine 65+ (3 of 3 - PCV20 or PCV21) 02/03/2025 02/04/2020, 06/01/2016 Procedures Procedure Name Priority Date/Time Associated Diagnosis Comments DEXA AXIAL SKELETON BONE DENSITY 1 OR MORE SITES Schedule Routine, Read Routine (OP Routine) 04/12/2021 1:09 PM CDT Osteopenia of multiple sites from Last 3 Months or Most Recently Relevant to Health Maintenance Results * Dexa Axial Skeleton Bone Density 1 or 2 Site (04/12/2021 1:09 PM CDT) Anatomical Region Laterality Modality Body N/A Radiographic Mansi ging Narrative 04/12/2021 1:44 PM CDT Patient Name: Sarah Souza Date of : 1955 Date of scan: 04/12/2021 Bone mineral density was performed on a [employer] Discovery Densitometer. Based on machine cross-calibration and precision studies the least significant changes of this densitometer is 0.024 g/cm2 at the spine, 0.020 g/cm2 at the total proximal femur, and 0.014g/cm2 at the forearm. HISTORY: This is a 65 y.o. postmenopausal female with a history of low bone mass and vitamin D deficiency. She reports that she has been smoking. She has never used smokeless tobacco. She is currently on treatment with calcium and vitamin D; and was previously treated with ibandronate (Boniva) and hormone replacement therapy. She has a current complaint of back pain. INDICATIONS: Menopause status, vitamin D deficiency and history of low bone mass. FINDINGS: BONE MINERAL DENSITY OF THE LUMBAR SPINE Bone Mineral Density (BMD) of the lumbar spine was measured from L1, L3-L4 and the average density was calculated to be 0.884 gm/cm2. This corresponds to a T-score (standard deviations from the mean of young adults) of -1.5. When compared to the previous study of 03/16/2020 there has been a 0.021 gm/cm (2.5%) increase in bone density that is considered significant. BONE MINERAL DENSITY OF THE PROXIMAL FEMUR Bone Mineral Density (BMD) of the left hip total was found to be 0.734 gm/cm2. This corresponds to a T-score standard deviations from the mean of young adults of -1.7. Femoral neck is 0.584 gm/cm2 with a T-score (standard deviations from the mean of young adults) of -2.4. When compared to the previous study of 03/16/2020 there has been no significant changes in bone density. SUMMARY: Bone mineral density shows evidence of low bone mass at the lumbar spine and proximal femur and moderately increased fracture risk (Osteopenia). There has been a significant increase in bone density since previous measurement. L2 excluded from bone mineral density analysis of the lumbar spine because of bone density being more than 1 standard deviation discrepant relative to one adjacent vertebra. Clinical correlation is recommended. Please note the previous spine scan was reanalyzed to provide and accurate comparison. ADDITIONAL COMMENTS: Postmenopausal Women and Men Over 50: Diagnostic criteria: Osteoporosis: BMD at or below -2.5 T-score; Osteopenia (low bone mass): BMD between -1.0 and -2.5 T-score. If the patient has a history of a fragility fracture, a fracture that occurred with trauma equivalent to a fall from a standing position or less, then the diagnosis is osteoporosis regardless of bone density. The history and data sections of the bone mineral density scan were prepared by Makayla Briones (R)(CBDT) who is accredited by the International Society of Clinical Densitometry. The overall patient assessment and scan interpretation were performed by Eduardo Bundy M.D. who is certified by the International Society of Clinical Densitometry. [id number] Eduardo Bundy MD IMG DXA PROCEDURES Final Result from Last 3 Months or Most Recently Relevant to Health Maintenance Insurance MEDICARE [facility] MEDICARE [facility] MEDICARE [facility] Care Teams Clerk Relationship Specialty [place] [id number] [address] PCP - General Family Practice 05/23/23 [place] [id number] [address] [address] Consulting Physician Endocrinology 05/23/23
--- OUTSIDE RECORDS SUMMARY | 2024-10-22 09:08 | XMS_ITS | Data Portability ---
Author Organization [place] [facility] [employer], Main Office Address [address] [place] [address] Assessment No assessment recorded. Plan of Treatment Reminders Order Date Submit Date Provider Last Modified By Organization Details Last Modified Time Details Appointments None recorded. Lab vitamin D, 25-hydrox y, total, serum 023 023 NOHEMYFashion To Figure [facility], [address], [place], [address], 3 12:11:33 CMP, serum or plasma 023 023 NOHEMYTop Rops [facility], [address], [place], [address], 3 12:11:35 PTH (parathyr oid hormone), intact + calcium, serum or plasma 023 023 NOHEMYFashion To [employer] [facility], [address], [place], [address], 3 12:11:34 phosphoru s, serum or plasma 023 023 [employer] [facility], [address], [place], [address], 3 12:11:34 TSH + free T4, serum 023 023 [employer]HEMYFashion To [employer] [facility], [address], [place], [address], 3 12:11:36 Referral None recorded. Procedures None recorded. Surgeries None recorded. Imaging None recorded. Medication Orders None recorded. Patient TargetsNo targets recorded. Patient InstructionsNo instructions recorded. Reason for Referral None Reported. Results Created Date Observation Date Name Description Value Unit Range Abnormal Flag Note LastModifiedBy Organization Detail LastModifiedTime 06/07/20 22 06/08/2022 TSH+F REE T4 TSH 0.98 mIU/L 0.40-4 .50 normal Not Available [facility] [address] [address] [place], [address], 06/08/2022 09:10:45 06/07/20 22 06/08/2022 TSH+F REE T4 T4, free 1.2 NG/dL 0.8-1. 8 normal Not Available [facility] [address] [address] [place], [address], 06/08/2022 09:10:45 06/07/20 22 06/08/2022 VITAM IN D,25- OH,TO KAREN,I A vitamin D,25-oh,tota l,ia 36 NG/mL 30-100 normal Vitam in D Statu s 25-OH Vitam in D: Defic iency : <20 ng/mL Insuf ficie ncy: 20 - 29 ng/mL Optim al: > or = 30 ng/mL For 25-OH Vitam in D testi ng on patie nts on D2-oconnor pplem entat ion and patie nts for whom quant itati on of D2 and D3 fract ions is requi red, the [facility] Assur eD(TM ) 25-OH VIT D, (D2,D 3), LC/MS /MS is recom myah d: order code 16272 (parul ents >2yrs ). See Note 1 Note 1 For addit ional infor cristobal lakhani refer to http: //robbin [place] gnost ics.c om/fa q/FAQ 199 (This link is being provi ded for infor carlos driscoll/ eductoya gordon purpo ses only. ) Not Available [facility]henai [facility] [address] [place], [address], 06/08/2022 09:10:45 06/07/20 22 06/08/2022 COMPR EHENS TAYLER METAB OLIC PANEL eGFR 63 mL/mi n/1.7 3m2 > or = 60 normal The eGFR is based on the CKD-E PI 2020 equat ion. To calcu late the new eGFR from a previ ous Creat inine or Cysta tin C resul t, go to https ://deandra hill.pablo berry.o valentin/shy castanedaal s/ kdoqi /gfr% 5Fcal culat or Not Available [address] [address] [place], [address], 06/08/2022 09:10:44 06/07/20 22 06/08/2022 COMPR EHENS TAYLER METAB OLIC PANEL BUN/creatini ne ratio not applic able (calc ) 6-22 Not Available [address] [address] [place], [address], 06/08/2022 09:10:44 06/07/20 22 06/08/2022 COMPR EHENS TAYLER METAB OLIC PANEL sodium 141 mmol/ L 135-14 6 normal Not Available [address] [address] [place], [address], 06/08/2022 09:10:44 06/07/20 22 06/08/2022 COMPR EHENS TAYLER METAB OLIC PANEL potassium 4.1 mmol/ L 3.5-5. 3 normal Not Available [address] [address] [place], [address], 06/08/2022 09:10:44 06/07/20 22 06/08/2022 COMPR EHENS TAYLER METAB OLIC PANEL chloride 105 mmol/ L 98-110 normal Not Available [address] [address] [place], [address], 06/08/2022 09:10:44 06/07/20 22 06/08/2022 COMPR EHENS TAYLER METAB OLIC PANEL carbon dioxide 29 mmol/ L 20-32 normal Not Available [address], [address], 06/08/2022 09:10:44 06/07/20 22 06/08/2022 COMPR EHENS TAYLER METAB OLIC PANEL calcium 9.0 mg/dL 8.6-10 .4 normal Not Available [address], [address], 06/08/2022 09:10:44 06/07/20 22 06/08/2022 COMPR EHENS TAYLER METAB OLIC PANEL protein, total 6.7 g/dL 6.1-8. 1 normal Not Available [address], [address], 06/08/2022 09:10:44 06/07/20 22 06/08/2022 COMPR EHENS TAYLER METAB OLIC PANEL albumin 4.2 g/dL 3.6-5. 1 normal Not Available [address], [address], 06/08/2022 09:10:44 06/07/20 22 06/08/2022 COMPR EHENS TAYLER METAB OLIC PANEL globulin 2.5 g/dL_ (calc ) 1.9-3. 7 normal Not Available [address], [address], 06/08/2022 09:10:44 06/07/20 22 06/08/2022 COMPR EHENS TAYLER METAB OLIC PANEL albumin/glob ulin ratio 1.7 (calc ) 1.0-2. 5 normal Not Available [address], [address], 06/08/2022 09:10:44 06/07/20 22 06/08/2022 COMPR EHENS TAYLER METAB OLIC PANEL bilirubin, total 0.3 mg/dL 0.2-1. 2 normal Not Available [address], [address], 06/08/2022 09:10:44 06/07/20 22 06/08/2022 COMPR EHENS TAYLER METAB OLIC PANEL alkaline phosphatase 49 U/L 37-153 normal Not Available [facility] [address], [address], 06/08/2022 09:10:44 06/07/20 22 06/08/2022 COMPR EHENS TAYLER METAB OLIC PANEL AST 21 U/L 10-35 normal Not Available [address], [address], 06/08/2022 09:10:44 06/07/20 22 06/08/2022 COMPR EHENS TAYLER METAB OLIC PANEL ALT 14 U/L 6-29 normal Not Available [address], [address], 06/08/2022 09:10:44 06/07/20 22 06/08/2022 COMPR EHENS TAYLER METAB OLIC PANEL glucose 80 mg/dL 65-139 normal Non-f astin g refer ence inter blair Not Available [address], [address], 06/08/2022 09:10:44 06/07/20 22 06/08/2022 COMPR EHENS TAYLER METAB OLIC PANEL urea nitrogen (BUN) 24 mg/dL 7-25 normal Not Available [address], [address], 06/08/2022 09:10:44 06/07/20 22 06/08/2022 COMPR EHENS TAYLER METAB OLIC PANEL creatinine 0.98 mg/dL 0.50-1 .05 normal Not Available [address], [address], 06/08/2022 09:10:44 06/07/20 22 06/08/2022 PHOSP HATE ( PHOSP HORUS ) phosphate ( phosphorus) 3.7 mg/dL 2.1-4. 3 normal Not Available [facility] [address] [place], [place] [address], [address], 06/08/2022 09:10:43 06/07/2006/08/2022 PTH, INTAC T AND CALCI UM parathyroid hormone, intact 65 pg/mL 16-77 normal Inter preti ve Guide Intac t PTH Calci um ----- ----- ----- --- ----- ----- ----- -- Danae l Parat hyroi d Danae l Danae l Hypop zeke yroid ism Low or Low Danae l Low Hyper parat hyroi dism Prima ry Danae l or High High Secon harrison High Danae l or Low Terti gaviota High High Non-P zeke yroid Hyper calce chino Low or Low Danae l High Not Available [address] [place], [address], 06/08/2022 09:10:42 06/07/2006/08/2022 PTH, INTAC T AND CALCI UM calcium 9.0 mg/dL 8.6-10 .4 normal Not Available [facility] [address] [place] [address], [address], 06/08/2022 09:10:42 06/13/2006/14/2022 CALCI UM, 24 HOUR URINE (W/O CREAT ININE ) calcium, 24 hour urine 279 mg/24 _h high Refer ence Range 35-25 0 Low calci um diet 35-20 0 URINE VOLUM E: 1700/ 24 Not Available [address], [address], 06/14/2022 17:06:48 11/29/19 23 12/07/2022 DEXAM ETHAS ONE dexamethason e 114 NG/dL Refer ence Range s for Dexam ethas one: Basel ine: Less than 20 ng/dL 1 mg dexam ethas one overn ight: 180-5 50 ng/dL (8:00 -10:0 0 AM) This test was devel alicia and its sherrill tical perfo rmanc e mario cteri stics have been deter mined by [facility] sherrill perez Sang Reich robert . It has not been clear ed or appro mirela by FDA. This assay has been valid ated pursu ant to the CLIA regul ation s and is used for clini zara purpo ses. Not Available [facility] [address] [place], [address], 12/07/2022 13:33:57 11/29/1912/07/2022 CORTI RICKI, A.M. cortisol, A.M. 0.9 mcg/d L low Refer ence Range 8 a.m. (7-9 a.m.) Speci men: 4.0-2 2.0 Not Available [facility] [address] [place], [address], 12/07/2022 13:33:59 10/14/19 23 09/28/2022 DEXA, axial skele ton No observ ation record ed. [email or web address] Not Available 2022 16:48:57 Result Notes None recorded. Problems Name Problem SNOMED Code Status Onset Date Resolution Date Notes Provider Name and Address Organization Details Recorded Time Anxiety 94211973 Active 2022 CRISTINA Pulliam, [employer] 3 09:52:11 Osteopenia 021567356 Active 2022 CRISTINA Pulliam, [employer] 3 09:55:23 Postmenopausal osteoporosis 088350056 Active 2022 Edelmira Stephen MD [address] [place] [address], [address] [facility] [employer] 3 09:44:22 Notes:Some problems listed i n Document: #[id number] could not be added to this patient's chart. Please review this document and add these problems to the patient's chart manually as needed. Problem Notes None recorded. Procedures Surgical History Date Name Laterality Status Provider Name and Address Organization Details Recorded Time biopsy of breast completed Not Available [facility] 09/22/2022 01:48:59 liposuction of subcutaneous tissue completed Not Available [facility] 09/22/2022 01:48:59 total abdominal hysterectomy with bilateral salpingo-oophorec aries completed Not Available [facility] 09/22/2022 01:48:59 Imaging Results Imaging Date Name Status LastModified by Organiz ation Details LastModified Time 09/28/2022 DEXA, axial skeleton completed [email or web address] Information not available 12/08/2022 16:48:57 Procedure Notes None recorded. Medical Equipment None Reported. Allergies No known drug allergies Medications Name Sig Start Date Stop Date Status Note LastModified by Organization Details LastModified Time doxycycline hyclate 100 mg capsule TAKE 1 CAPSULE BY MOUTH DAILY 12/13 completed Not Available Not Available Not Available atorvastati n 10 mg tablet active Not Available Not Available Not Available citalopram 10 mg tablet Take 1 tablet every day by oral route. 06/07 completed Not Available Not Available Not Available valacyclovi r 500 mg tablet TAKE 1 TABLET BY MOUTH TWICE DAILY. START TAKING 48 HOURS BEFORE PROCEDURE 12/13 completed Not Available Not Available Not Available pantoprazol e 20 mg tablet,gerardo yed release TAKE 1 TABLET BY MOUTH AT BEDTIME 06/07 completed Not Available Not Available Not Available dexamethaso ne 1 mg tablet TAKE 1 TABLET BY MOUTH AT 10PM THE NIGHT BEFORE 8AM CORTISOL 12/13 completed Not Available Not Available Not Available benzonatate 100 mg capsule TAKE 1 CAPSULE BY MOUTH THREE TIMES DAILY 06/07 completed Not Available Not Available Not Available hydroxyzine HCl 25 mg tablet TAKE 1 TABLET BY MOUTH TWICE DAILY NEEDED FOR ANXIETY 12/13 completed Not Available Not Available Not Available azelastine 137 mcg (0.1 %) nasal spray USE 1 SPRAY IN EACH NOSTRIL EVERY 12 HOURS 12/13 completed Not Available Not Available Not Available levofloxaci n 750 mg tablet TAKE 1 TABLET BY MOUTH DAILY 06/07 completed Not Available Not Available Not Available ondansetron 4 mg disintegrat ing tablet DISSOLVE 1 TABLET ON THE TONGUE EVERY 8 HOURS NEEDED FOR NAUSEA OR VOMITING 12/13 completed Not Available Not Available Not Available escitalopra m 10 mg tablet Take 1 tablet every day by oral route. active Not Available Not Available No t Available amlodipine 10 mg-atorvast atin 10 mg tablet Take 1 tablet every day by oral route. 12/13 completed Not Available Not Available Not Available ID NOW COVID-19 Test Kit TEST DIRECTED TODAY active Not Available Not Available No t Available Vitals Date Recorded Body mass index (BMI) Body height Oxygen saturation Oxygen saturation in Arterial blood by Pulse oximetry Heart rate Body temperature Body weight Systolic blood pressure Diastolic blood pressure Provider Name and Address Organization Details Last Updated DateTime 2 23.4 kg/m2 171.7 cm 98 % 98 % 70 /min 98.1 [degF] 48120.7 6 g 120 mm[Hg] 80 mm[Hg] Not Available [employer] 3 01:49:57 Date Recorded Body height Body mass index (BMI) Body weight Body temperature Respiratory rate Heart rate Systolic blood pressure Diastolic blood pressure Provider Name and Address Organization Details Last Updated DateTime 3 171.7 cm 23.4 kg/m2 05440.3 2 g 97.6 [degF] 18 /min 72 /min 113 mm[Hg] 74 mm[Hg] CRISTINA Pulliam CT [employer] [facility] [employer] 3 11:47:58 Social History Question Answer Notes LastModified by Organizat ion Details LastModified Time Tobacco Smoking Status Current Every Day Smoker SHERRY Ga, [place] [employer] [facility] 12/13/2022 11:30:15 Do You Have An Advance Directive? No [id number] Information not available 09/22/2022 What Is Your Level Of Alcohol Consumption? Occasional [id number] Information not available 09/22/2022 How Many Years Have You Consumed Alcohol? 40 [email or web address] Information not available 12/13/2022 Are You Blind Or Do You Have Difficulty Seeing? No [email or web address] Information not available 12/13/2022 What Is Your Level Of Caffeine Consumption? Occasional [id number] Information not available 09/22/2022 Are You Deaf Or Do You Have Serious Difficulty Hearing? No [email or web address] Information not available 12/13/2022 What Type Of Diet Are You Following? REGULAR [id number] Information not available 09/22/2022 Are There Any Guns Present In Your Home? Yes [email or web address] Information not available 12/13/2022 What Is Your Relationship Status? [id number] Information not available 09/22/2022 Do You Have Smoke And Carbon Monoxide Detectors In Your Home? Yes Information not available 12/13/2022 Are You Passively Exposed To Smoke? No [email or web address] Information not available 12/13/2022 Do You Feel Stressed (tense, Restless, Nervous, Or Anxious, Or Unable To Sleep At Night)? [id number] [email or web address] Information not available 12/13/2022 Do You Use Any Illicit Or Recreational Drugs? Yes Marjuana - Edibles [email or web address] Information not available 12/13/2022 Do You Use Sunscreen Routinely? Yes [email or web address] Information not available 12/13/2022 How Many Years Have You Smoked Tobacco? 40 On & Off Smoker For 40 Years [email or web address] Information not available 12/13/2022 Do You Have Any Dietary Restrictions? No [email or web address] Information not available 12/13/2022 Do You Or Have You Ever Used Any Other Forms Of Tobacco Or Nicotine? No [email or web address] Information not available 12/13/2022 Sex: Female Functional Status Question Answer Note LastModified by Organizat ion Details LastModified Time Do you have difficulty walking or climbing stairs? No [email or web address] Information not available 12/13/2022 Do you have transportation difficulties? No [email or web address] Information not available 12/13/2022 Are you able to walk? YESWOREST [email or web address] Information not available 12/13/2022 Do you have difficulty doing errands alone? No [email or web address] Information not available 12/13/2022 Are you able to care for yourself? Yes [email or web address] Information n ot available 12/13/2022 Do you have difficulty dressing or bathing? No [email or web address] Information not available 12/13/2022 What is your exercise level? Moderate [id number] Information not available 09/22/2022 Mental Status Question Answer Note LastModified by Organization D etails LastModified Time Do you have difficulty concentrating, remembering or making decisions? No [email or web address] Information no t available 12/13/2022 Family History Relationship Description Onset Age of this Age Resolved Age Notes LastModified by Organization Details LastModified Time Maternal Aunt Family history of breast cancer 59 [email or web address] Not available 12/13 11:30:14 Mother Family history of stroke [email or web address] Not available 12/13 11:30:14 Sister Family history of breast cancer 37 mastec aries [email or web address] Not available 12/13/2022 11:30:14 Sister Anxiety disorder [id number] Not available 09/22/2022 01:49:05 Notes:Unspecified Relation: malignant tumor of pharynx, malignant tumor of brain Medical History Condition Response HIGH CHOLESTEROL / HYPERLIPIDEMIA Y DEPRESSION (INCLUDING POST ) HEART DISEASE/HEART PROBLEMS Gynecological HistoryNo gynecological history recorded. Obstetrics History GPAL:G 0 P 0 0 0 0 Past Encounters Encounter ID Performer Location Encounter Start Date Encounter Closed Date Diagnosis/Indication Diagnosis SNOMED-CT Code Diagnosis ICD10 Code Diagnosis Note [id number] [facility] [place] [address] [place] [address] 06/07/2022 00:00:00 06/07/2022 09:50:06 [id number] Edelmira Stephen MD [facility] [place] [address] [place] [address] 12/13/2022 11:26:03 12/13/2022 12:27:37 Postmenopausal osteoporosis 653665800 M81.0 Secondary bone loss workup was essentiall y normal- she has no evidence of hyperparat hyroidism or overactive thyroid function. She had normal DST so no evidence of hypercorti solism. Her urinary calcium was borderline elevated but not consistent with true hypercalci uria picture as she was taking her calcium supplement s during her collection . She has been on 5 years of bisphospho osbaldo therapy and not recommende d to treat over this timeframe due to risk for subtrochan teric fracture risk. Discussed anabolic therapy with either forteo or tymlos vs prolia injections - her most recent bone scan from September demonstrat es mild osteoporos is of spine and osteopenia of hips bilaterall y. For now will continue vitamin D and calcium therapy and patient would like to look into treatment options before starting therapy/ following her trip in [place]. Will plan to see patient back in April to start therapy. Spent up to 20 minutes preparing to see the patient (eg, review of tests), obtaining and/or reviewing separately obtained history, performing a medically appropriat e examinatio n and evaluation , counseling and educating the patient, ordering medication s, tests, along with documentin g clinical informatio n in the electronic health record, independen tly interpreti ng results and communicat ing results to the patient. RTC in 5 months. Patient was provided a handwritte n lab order which contains our fax number. If she chooses to go outside of the [facility] system to obtain labwork she was advised to provide our fax number and my informatio n to the lab she will be obtaining labwork from in order to have her labs properly forwarded over for me to review so there is no loss of follow up due to use of outside network. She was also advised to contact our clinic informing us that she has completed her labwork so we are aware we will need to reach out to the appropriat e laboratory to request her results be forwarded to us so I might have the ability to review and make further medical decision making in her case. She voiced understand ing. Health Concerns Section Related Observation LastModified by Organization Detai ls LastModified Time None Recorded Concern Status LastModified by Organization Details LastModified Time None Recorded Advance Directives Directive N: Payers Encounter Date Sequence Insurance Name Policy Number Policy Akbar Covered Member ID Akbar Member ID Guarantor Name 12/13/2022 1 [place] Sarah Souza [id number] Sarah Souza 12/13/2022 2 [employer] (MEDICARE SUPPLEMENT) Sarah Souza [id number] Sarah Souza Notes Date Note Type Note Provider Name and Address Organization Details Recorded Time 12/13/2022 text/html 67 yo female com es in for follow up in management of now postmenopausal osteoporosis last/initial visit in 06/14 at that time we advised to stop boniva as she had been on this for over 5 years against recommendations. repeat bone density from 10/13:T score of -2.6 of LST score of -2.3 of L hipT score of -2.1 of R hip labs from 06/14:24 hour urine calcium 279 mg/24 hourPTH 65 pg/mLcalcium 9 mg/dLPO4 normalglucose 80 mg/dLCr normalLFT normalalk phos normalvit D 36 ng/mLTSH of 0.98 uIU/mlFT4 of 1.2 ng/dL She is taking vitamin D 800 IU daily along with calcium 1200 mg daily. She has strong family hx of cancer of breast. She has never had radiation therapy in the past or cancer hx in self. She has no recent falls, fractures or kidney stones. Edelmira Stephen MD [address] [facility], [facility] [address], [place], [address], [place] [facility] 12/13/2022 12:19:06 OBGyn Episode No OBEpisode recorded.
--- OUTSIDE RECORDS SUMMARY | 2024-10-22 09:08 | XMS_ITS | Referral Summary ---
Author Organization [facility] Address [address] [place] [address] Care Team Providers Care Gas Specialist Name Role Phone Jeny Mclean MD Unavailable [phone] Bhaskar Castillo MD Primary Care Provider [phone] Allergies No known active allergies Medications atorvastatin [...] Status post Boniva therapy for 5 years [address] Risk factors age, , postmenopausal, smoking Recommend fall precautions Recommend to keep working on her exercises, weight and balance training today Give instructions on how to be safe during her exercises - continue current calcium and vitamin-D supplementations - discussed about osteoporotic medication options - consider doing IV bisphosphonate therapy - will do IV Reclast therapy at [facility] ( discussed mechanism of action, side effects and benefits ) - advised patient to see her dentist before considering infusion therapy - patient will call office and notify us when she is cleared by her dentist - CMP lab before Reclast infusion - follow-up in 1 year Social History Tobacco Use Types Packs/Day Years Used Date Smoking Tobacco: Every Day Cigarettes 0.3 30 Smokeless Tobacco: Never Tobacco Cessation:Ready to Q uit: Not Asked; Counseling Given: Not Answered Personal Safety Answer Date Recorded Getting School Help Needed Not on file 09/16 Comments Unknown Sex and Gender Information Value Date Recorded Sex Assigned at Not on file Legal Sex Female 12:09 AM DIRECTOR OF PATIENT SAFETY Gender Identity Female 08/16/2019 3:57 PM DIRECTOR OF PATIENT SAFETY Sexual Orientation Straight 08/16/2019 3: 57 PM DIRECTOR OF PATIENT SAFETY Last Filed Vital Signs Vital Sign Reading [...] 05/22/2023 10:30 AM CDT Plan of Treatment Not on file Procedures Procedure Name Priority Date/Time Associated Diagnosis [...] Bone mineral density was performed on a [employer] Discovery Densitometer. Based on machine cross-calibration and [...] by the International Society of Clinical Densitometry. [id number] Eduardo Bundy MD IMG DXA PROCEDURES Final Result from Last 3 Months or Most Recently Relevant to Health Maintenance Insurance MEDICARE [facility] MEDICARE [facility] [place] [phone] [facility] Care Teams Gas Specialist Relationship Specialty [place] [address] [place] [address] PCP - General Family Practice 05/23/23 [place] [address] [place] [address] Consulting Physician Endocrinology 05/23/23
== END 2024-10-22 08:50 | disposition home or self-care (01) ==
PROVIDERS: PCP Nurse Anesthetist, Certified Registered; Visit Provider Nurse Practitioner Family
DX: M81.0 Age-related osteoporosis without current pathological fracture (principal); Z13.820 Encounter for screening for osteoporosis; M85.88 Other specified disorders of bone density and structure, other site; M85.852 Other specified disorders of bone density and structure, left thigh; M85.851 Other specified disorders of bone density and structure, right thigh
CPT/HCPCS: 77080

== ENCOUNTER 2024-11-26 12:08 | Outpatient (CLI) | payer OTHER, SELFPAY ==
--- NOTE | 2024-11-26 12:23 | ECG_ITS ---
Test Date: 2024-11-26 12:50:56 Measurements Intervals Hubert Rate: 64 P: 48 IA: 153 QRS: 11 QRSD: 94 T: 34 QT: 390 QTc: 403 Interpretive Statements SINUS RHYTHM No previous ECG available for comparison Electronically Signed On 11-26-2024 14:35:49 CDT by Cyndee Myles M.D.
--- OUTSIDE RECORDS SUMMARY | 2024-11-26 12:31 | XMS_ITS | Referral Summary ---
Author Organization [facility] Address [address] [place] [address] Care Team Providers Care Heat Treating Furnace Tender Name Role Phone Jeny Mclean MD Unavailable [phone] Bhaskar Castillo MD Primary Care Provider [phone] Allergies No known active allergies Medications atorvastatin [...] Status post Boniva therapy for 5 years 7618-6890 Risk factors age, , postmenopausal, smoking Recommend fall precautions Recommend to keep working on her exercises, weight and balance training today Give instructions on how to be safe during her exercises - continue current calcium and vitamin-D supplementations - discussed about osteoporotic medication options - consider doing IV bisphosphonate therapy - will do IV Reclast therapy at [facility] ( discussed mechanism of action, side [...] on file Legal Sex Female 12:09 AM FISH CHECKER Gender Identity Female 08/16/2019 3:57 PM FISH CHECKER Sexual Orientation Straight 08/16/2019 3: 57 PM FISH CHECKER Last Filed Vital Signs Vital Sign Reading [...] Bone mineral density was performed on a [employer] Discovery Densitometer. Based on machine cross-calibration and [...] by the International Society of Clinical Densitometry. [id number] Eduardo Bundy MD IMG DXA PROCEDURES Final Result from Last 3 Months or Most Recently Relevant to Health Maintenance Insurance MEDICARE [facility] MEDICARE [facility] MEDICARE [facility] Care Teams Heat Treating Furnace Tender Relationship Specialty [place] [address] [place] [address] PCP - General Family Practice 05/23/23 [place] [address] [place] [address] Consulting Physician Endocrinology 05/23/23
--- OUTSIDE RECORDS SUMMARY | 2024-11-26 12:31 | XMS_ITS | Clinical Summary ---
Author Organization [facility] Address [address] [place] [address] Care Team Providers Care Scale Mechanic Name Role Phone Jeny Mclean MD Unavailable [phone] Bhaskar Castillo MD Primary Care Provider [phone] Allergies No known active allergies Medications atorvastatin [...] Status post Boniva therapy for 5 years 8556-6760 Risk factors age, , postmenopausal, smoking Recommend fall precautions Recommend to keep working on her exercises, weight and balance training today Give instructions on how to be safe during her exercises - continue current calcium and vitamin-D supplementations - discussed about osteoporotic medication options - consider doing IV bisphosphonate therapy - will do IV Reclast therapy at [facility] ( discussed mechanism of action, [...] on file Legal Sex Female 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 Based on machine cross-calibration and [...] by the International Society of Clinical Densitometry. [id number] Eduardo Bundy MD IMG DXA PROCEDURES Final Result from Last 3 Months or Most Recently Relevant to Health Maintenance Insurance MEDICARE [facility] Address: [facility] [id number] [place] [address] [id number] [facility]ICARE [facility] Care Teams Scale Mechanic Relationship Specialty [place] [address] [facility] [address] [address] PCP - General Family Practice 05/23/23 [place] [address] [facility] [address] [address] Consulting Physician Endocrinology 05/23/23
--- OUTSIDE RECORDS SUMMARY | 2024-11-26 12:31 | XMS_ITS | Data Portability ---
Author Organization [place] [facility], Main Office Address [address] [place] [address] Assessment No assessment recorded. Plan of Treatment Reminders Order Date Submit Date Provider Last Modified By Organization Details Last Modified Time Details Appointments None recorded. Lab vitamin D, 25-hydrox y, total, serum 023 023 [employer] [facility], [address], [place], [address], 3 12:11:33 CMP, serum or plasma 023 023 [employer] [facility], [address], [place], [address], 3 12:11:35 PTH (parathyr oid hormone), intact + calcium, serum or plasma 023 023 [employer] [facility], [address], [place], [address], 3 12:11:34 phosphoru s, serum or plasma 023 023 [employer] [facility], [address], [place], [address], 3 12:11:34 TSH + free T4, serum 023 023 [employer] [facility], [address], [place], [address], 3 12:11:36 Referral None recorded. Procedures None recorded. Surgeries None recorded. Imaging None recorded. Medication Orders None recorded. Patient TargetsNo targets recorded. Patient InstructionsNo instructions recorded. Reason for Referral None Reported. Results Created Date Observation Date Name Description Value Unit Range Abnormal Flag Note LastModifiedBy Organization Detail LastModifiedTime 06/07/20 22 06/08/2022 TSH+F REE T4 TSH 0.98 mIU/L 0.40-4 .50 normal Not Available [employer] [address] [address] [place], [address], 06/08/2022 09:10:45 06/07/20 22 06/08/2022 TSH+F REE T4 T4, free 1.2 NG/dL 0.8-1. 8 normal Not Available [employer] [address] [address] [place], [address], 06/08/2022 09:10:45 06/07/20 22 06/08/2022 VITAM IN [...] /MS is recom myah d: order code 87381 (parul ents >2yrs ). See Note 1 Note 1 For addit ional infor cristobal lakhani refer to http: //robbin [place] gnost ics.c om/fa q/FAQ 199 (This link is being provi ded for infor carlos driscoll/ eductoya gordon purpo ses only. ) Not Available [employer] [facility] [address] [place], [address], 06/08/2022 09:10:45 06/07/20 22 06/08/2022 COMPR EHENS [...] kdoqi /gfr% 5Fcal culat or Not Available [address] [address] [place], [address], 06/08/2022 09:10:44 06/07/20 22 06/08/2022 COMPR EHENS TAYLER METAB OLIC PANEL BUN/creatini ne ratio not applic able (calc ) 6-22 Not Available [address] [address] [place], [address], 06/08/2022 09:10:44 06/07/20 22 06/08/2022 COMPR EHENS TAYLER METAB OLIC PANEL sodium 141 mmol/ L 135-14 6 normal Not Available [address] [address] [place], [address], 06/08/2022 09:10:44 06/07/20 22 06/08/2022 COMPR EHENS TAYLER METAB OLIC PANEL potassium 4.1 mmol/ L 3.5-5. 3 normal Not Available [address] [address] [place], [address], 06/08/2022 09:10:44 06/07/20 22 06/08/2022 COMPR EHENS TAYLER METAB OLIC PANEL chloride 105 mmol/ L 98-110 normal Not Available [address] [address] [place], [address], 06/08/2022 09:10:44 06/07/20 22 06/08/2022 COMPR EHENS TAYLER METAB OLIC PANEL carbon dioxide 29 mmol/ L 20-32 normal Not Available [address], [address], 06/08/2022 09:10:44 06/07/20 22 06/08/2022 COMPR EHENS TAYLER METAB OLIC PANEL calcium 9.0 mg/dL 8.6-10 .4 normal Not Available [address], [address], 06/08/2022 09:10:44 06/07/20 22 06/08/2022 COMPR EHENS TAYLER METAB OLIC PANEL protein, total 6.7 g/dL 6.1-8. 1 normal Not Available [address], [address], 06/08/2022 09:10:44 06/07/20 22 06/08/2022 COMPR EHENS TAYLER METAB OLIC PANEL albumin 4.2 g/dL 3.6-5. 1 normal Not Available [address], [address], 06/08/2022 09:10:44 06/07/20 22 06/08/2022 COMPR EHENS TAYLER METAB OLIC PANEL globulin 2.5 g/dL_ (calc ) 1.9-3. 7 normal Not Available [address], [address], 06/08/2022 09:10:44 06/07/20 22 06/08/2022 COMPR EHENS TAYLER METAB OLIC PANEL albumin/glob ulin ratio 1.7 (calc ) 1.0-2. 5 normal Not Available [address], [address], 06/08/2022 09:10:44 06/07/20 22 06/08/2022 COMPR EHENS TAYLER METAB OLIC PANEL bilirubin, total 0.3 mg/dL 0.2-1. 2 normal Not Available [address], [address], 06/08/2022 09:10:44 06/07/20 22 06/08/2022 COMPR EHENS TAYLER METAB OLIC PANEL alkaline phosphatase 49 U/L 37-153 normal Not Available [facility] [employer] [address], [address], 06/08/2022 09:10:44 06/07/20 22 06/08/2022 COMPR EHENS TAYLER METAB OLIC PANEL AST 21 U/L 10-35 normal Not Available [address], [address], 06/08/2022 09:10:44 06/07/20 22 06/08/2022 COMPR EHENS TAYLER METAB OLIC PANEL ALT 14 U/L 6-29 normal Not Available [address], [address], 06/08/2022 09:10:44 06/07/20 22 06/08/2022 COMPR EHENS TAYLER METAB OLIC PANEL glucose 80 mg/dL 65-139 normal Non-f astin g refer ence inter blair Not Available [address], [address], 06/08/2022 09:10:44 06/07/20 22 06/08/2022 COMPR EHENS TAYLER METAB OLIC PANEL urea nitrogen (BUN) 24 mg/dL 7-25 normal Not Available [address], [address], 06/08/2022 09:10:44 06/07/20 22 06/08/2022 COMPR EHENS TAYLER METAB OLIC PANEL creatinine 0.98 mg/dL 0.50-1 .05 normal Not Available [address], [address], 06/08/2022 09:10:44 06/07/20 22 06/08/2022 PHOSP HATE ( PHOSP HORUS ) phosphate ( phosphorus) 3.7 mg/dL 2.1-4. 3 normal Not Available [facility] [address] [place], [place] [address], [address], 06/08/2022 09:10:43 06/07/2006/08/2022 PTH, INTAC T AND [...] or Low Danae l High Not Available [address] [place], [address], 06/08/2022 09:10:42 06/07/2006/08/2022 PTH, INTAC T AND CALCI UM calcium 9.0 mg/dL 8.6-10 .4 normal Not Available [facility] [address] [place] [address], [address], 06/08/2022 09:10:42 06/13/2006/14/2022 CALCI UM, 24 HOUR URINE (W/O CREAT ININE ) calcium, 24 hour urine 279 mg/24 _h high Refer ence Range 35-25 0 Low calci um diet 35-20 0 URINE VOLUM E: 1700/ 24 Not Available [address], [address], 06/14/2022 17:06:48 11/29/19 23 12/07/2022 DEXAM ETHAS [...] for clini zara purpo ses. Not Available [employer] [facility] [address] [place], [address], 12/07/2022 13:33:57 11/29/1912/07/2022 CORTI RICKI, A.M. cortisol, A.M. 0.9 mcg/d L low Refer ence Range 8 a.m. (7-9 a.m.) Speci men: 4.0-2 2.0 Not Available [employer] [facility] [address] [place], [address], 12/07/2022 13:33:59 10/14/19 23 09/28/2022 DEXA, axial skele ton No observ ation record ed. [email or web address] Not Available 2022 16:48:57 Result Notes None recorded. Problems Name Problem SNOMED Code Status Onset Date Resolution Date Notes Provider Name and Address Organization Details Recorded Time Anxiety 09995440 Active 2022 CRISTINA Pulliam, [employer] 3 09:52:11 Osteopenia 613864798 Active 2022 CRISTINA Pulliam, [employer] 3 09:55:23 Postmenopausal osteoporosis 597898721 Active 2022 Edelmira Stephen MD [address] [place] [address], [address] [facility] [employer] 3 09:44:22 Notes:Some problems listed i n Document: #[id number] could not be added to this patient's chart. Please review this document and add these problems to the patient's chart manually as needed. Problem Notes None recorded. Procedures Surgical History Date Name Laterality Status Provider Name and Address Organization Details Recorded Time biopsy of breast completed Not Available [facility] 09/22/2022 01:48:59 liposuction of subcutaneous tissue completed Not Available [facility] 09/22/2022 01:48:59 total abdominal hysterectomy with bilateral salpingo-oophorec aries completed Not Available [facility] 09/22/2022 01:48:59 Imaging Results Imaging Date Name [...] % 98 % 70 /min 98.1 [degF] 85497.7 6 g 120 mm[Hg] 80 mm[Hg] Not Available [employer] 3 01:49:57 Date Recorded Body height Body mass index (BMI) Body weight Body temperature Respiratory rate Heart rate Systolic blood pressure Diastolic blood pressure Provider Name and Address Organization Details Last Updated DateTime 3 171.7 cm 23.4 kg/m2 92550.3 2 g 97.6 [degF] 18 /min 72 /min 113 mm[Hg] 74 mm[Hg] CRISTINA Pulliam [place] [employer] [facility] [employer] 3 11:47:58 Social History Question Answer Notes LastModified by Organizat ion Details LastModified Time Tobacco Smoking Status Current Every Day Smoker [place]ERRY [place], [place] [employer] [facility] [employer] [facility] 12/13/2022 11:30:15 Do You Have An Advance Directive? No [id number] Information not available 09/22/2022 What Is Your Level Of Alcohol Consumption? Occasional [id number] Information not available 09/22/2022 How Many Years Have You Consumed Alcohol? 40 [email or web address] Information not available 12/13/2022 Are You Blind Or Do You Have Difficulty Seeing? No [email or web address] Information not available 12/13/2022 What Is Your Level Of Caffeine Consumption? Occasional [id number] Information not available 09/22/2022 Are You Deaf Or Do You Have Serious Difficulty Hearing? No [email or web address] Information not available 12/13/2022 What Type Of Diet Are You Following? REGULAR [id number] Information not available 09/22/2022 Are There Any Guns Present In Your Home? Yes [email or web address] Information not available 12/13/2022 What Is Your Relationship Status? [id number] Information not available 09/22/2022 Do You Have Smoke And Carbon Monoxide Detectors In Your Home? Yes [email or web address] Information not available 12/13/2022 Are You Passively Exposed To Smoke? No [email or web address] Information not available 12/13/2022 Do You Feel Stressed (tense, Restless, Nervous, Or Anxious, Or Unable To Sleep At Night)? [id number] [email or web address] Information not available 12/13/2022 Do You Use Any Illicit Or Recreational Drugs? Yes [employer] [email or web address] Information not available 12/13/2022 Do You Use Sunscreen Routinely? Yes [email or web address] Information not available 12/13/2022 How Many Years Have You Smoked Tobacco? 40 On & Off Smoker For 40 Years [email or web address] Information not available 12/13/2022 Do You Have Any Dietary Restrictions? No [email or web address] Information not available 12/13/2022 Do You Or Have You Ever Used Any Other Forms Of Tobacco Or Nicotine? No [email or web address] Information not available 12/13/2022 Sex: Female Functional Status Question Answer Note LastModified by Organizat ion Details LastModified Time Do you have difficulty walking or climbing stairs? No Information not available 12/13/2022 Do you have transportation difficulties? No [email or web address] Information not available 12/13/2022 Are you able to walk? YESWOREST [email or web address] Information not available 12/13/2022 Do you have difficulty doing errands alone? No [email or web address] Information not available 12/13/2022 Are you able to care for yourself? Yes Information n ot available 12/13/2022 Do you have difficulty dressing or bathing? No Information not available 12/13/2022 What is your exercise level? Moderate [id number] Information not available 09/22/2022 Mental Status Question Answer Note LastModified by Organization D etails LastModified Time Do you have difficulty concentrating, remembering or making decisions? No [email or web address] Information no t available 12/13/2022 Family History Relationship Description Onset Age of this Age Resolved Age Notes LastModified by Organization Details LastModified Time Maternal Aunt Family history of breast cancer 59 [email or web address] Not available 12/13 11:30:14 Mother Family history of stroke [email or web address] Not available 12/13 11:30:14 Sister Family history of breast cancer 37 mastec aries [email or web address] Not available 12/13/2022 11:30:14 Sister Anxiety disorder [id number] Not available 09/22/2022 01:49:05 Notes:Unspecified Relation: malignant [...] SNOMED-CT Code Diagnosis ICD10 Code Diagnosis Note [id number] Edelmira Stephen MD [facility] [address] [place] [address] 06/07/2022 00:00:00 06/07/2022 09:50:06 [id number] Edelmira Stephen MD [facility] [address] [place] [address] 12/13/2022 11:26:03 12/13/2022 12:27:37 Postmenopausal osteoporosis 891629852 M81.0 Secondary bone loss workup was essentiall [...] she chooses to go outside of the [facility] system to obtain labwork she was [...] Name 12/13/2022 1 [place] Sarah Souza [id number] Sarah Souza 12/13/2022 2 [facility] OPT[facility] (MEDICARE SUPPLEMENT) Sarah Souza [id number] Sarah Souza Notes Date Note Type Note [...] or kidney stones. Edelmira Stephen MD [address] [facility] [address], [place], [address], [facility] 12/13/2022 12:19:06 OBGyn Episode No OBEpisode recorded.
--- OUTSIDE RECORDS SUMMARY | 2024-11-26 12:31 | XMS_ITS | Data Portability ---
Author Organization [facility] Address [address] [place] [place] [address] Care Team Providers Care Curator Natural History [employer] Name Role Phone LAURIE MILLER Primary Care Provider Assessment No assessment recorded. Plan of Treatment Reminders Order Date Submit Date Provider Last Modified By Organization Details Last Modified Time Details Appointments None recorded. Lab None recorded. Referral None recorded. Procedures None recorded. Surgeries None recorded. Imaging MAMMO, diagnostic , digital, bilateral 2020 [facility], [address], [place], [address], 17:07:40 Medication Orders None recorded. Patient TargetsNo [...] and labor atory findi ngs. See https ://[employer]/s ites/ defau lt/fi les/2 018-0 3/AW- 76549 _002_ 01.pd f for henna calderon. Test perfo rmed by [facility], d/b/a [facility], [address] , [place] [address] , Kate Harper ra, DO, Labor atory [facility]. HPV High Risk *HPV NOT DETEC ABBY [...] labor atory findi ngs. See https ://ww w[employer]. [employer]/s ites/ pauline lt/fi les/2 018-0 3/AW- 35026 _002_ 01.pd f for henna barron larryr carlos calderon. Test perfo rmed by [employer] [facility], d/b/a Syl rougiovanni, [address], [place] [address] , Kate Harper ra, DO, Labor atory Dire tor. End of t Techn ical servi zuly provi ded by [employer] iated [facility], d/b/a [facility] r[facility], [address] [place] [address] Nick Ricks MD, [facility] ator Dire tor. Case revie wed and diagn osis rende red at [facility], d/b/a [facility] r[facility], [address] [place] [address] Nick Ricks MD, [facility] atorreadeo [facility] tor. CONFI DENTI AL Not Available [facility] ([facility]) [address] [place] [address], [place], [address], 12/30/2019 10:53:17 12/26/19 20 12/27/2019 HPV DNA, high- risk HPV high risk NOT DETECT ED normal Not Available [facility] ([facility]) [address] [place] [address], [place], [address], 12/30/2019 10:53:18 11/28/19 21 11/27/2020 MAMMO , scree cayla, bilat eral No observ ation record ed. [facility] [address], [place], [address], 12/13/2020 10:23:02 01/05/20 22 01/04/2022 imagi ng/di agnos tic resul t No observ ation record ed. NO[facility] [address], [place], [address], 01/27/2022 17:19:28 06/01/20 22 DEXA, axial skele ton + verte bral fract ure asses sment No observ ation record ed. [email or web address] Not Available 06/01 15:13:45 05/25/20 23 05/24/2023 MAMMO , scree cayla, bilat eral No observ ation record ed. [email or web address] [facility] [address], [place], [address], 07/27/2023 16:57:54 Result Notes None recorded. Problems Name Problem SNOMED Code Status Onset Date Resolution Date Notes Provider Name and Address Organization Details Recorded Time Clinical finding Completed 201903/22/2021 Other specifie d disorder s of breast;R ecorded Elsewher e: No Locat ion: [facility] S ource: EHR Ripsaw Matcher jeffrey: Kitty Chow ce ID: 0001 Nacho lable Time: 02:30:00 PM Dee Dee duran [facility] 15:48:06 Speciali zed medical examinat ion Completed 201203/22/2021 Gynecolo gical Examinat ion;Ottoniel rded Elsewher e: No Locat ion: [facility] S ource: EHR Ripsaw Matcher jeffrey: Kitty Santosti ce ID: 0001 Nacho lable Time: 01:00:00 PM Dee Dee duran [facility] 15:48:51 Screenin g for malignan t neoplasm of cervix Completed 201003/22/2021 Screenin g for malignan t neoplasm s of the cervix;R ecorded Elsewher e: No Locat ion: [facility] S ource: EHR Ripsaw Matcher jeffrey: Kitty Santosti ce ID: 0001 Nacho lable Time: 03:00:00 PM Dee Dee duran [facility] 1 15:48:02 Screenin g for malignan t neoplasm of rectum Completed 201003/22/2021 Screenin g for malignan t neoplasm s of the rectum;R ecorded Elsewher e: No Locat ion: Mohsen lenz [facility] S ource: EHR Ripsaw Matcher jeffrey: N Practi ce ID: 0001 Nacho lable Time: 03:00:00 PM Dee Dee duran [facility] 15:48:[address] Concept Completed 201703/22/2021 Encntr for account resolution specialist exam (general ) (routine ) w/o abn findings ;Recorde d Elsewher e: No Locat ion: [facility] yoanna [facility] S ource: EHR Ripsaw Matcher jeffrey: N Practi ce ID: 0001 Nacho lable Time: 11:15:00 AM Dee Dee duran [facility] 15:48:[address] Concept Completed 201703/22/2021 Encntr for general adult medical exam w/o abnormal findings ;Recorde d Elsewher e: No Locat ion: [facility] S ource: EHR Ripsaw Matcher jeffrey: N Practi ce ID: 0001 Nacho lable Time: 11:15:00 AM Dee eDe duran [facility] 15:48:10 Galactor connie not associat ed with childbir th [id number] Completed 201903/22/2021 Galactor connie not associat ed with childbir th;Recor ded Elsewher e: No [facility] S ource: EHR Ripsaw Matcher jeffrey: N Practi ce ID: 0001 Nacho lable Time: 08:29:31 AM Dee Dee udran [facility] 15:48:55 Microsco pic hematuri a [id number] Completed 201003/22/2021 MICROSCO PIC HEMATURI A;Record ed Elsewher e: No Locat ion: Mohsen lenz [facility] S ource: EHR Ripsaw Matcher jeffrey: N Practi ce ID: 0001 Nacho lable Time: 03:00:00 PM Dee Dee duran [facility] 15:48:04 Micturit ion finding Completed 201703/22/2021 Urinary incontin ence;Rec orded Elsewher e: No Locat ion: Mohsen lenz [facility] S ource: EHR Ripsaw Matcher jeffrey: N Practi ce ID: 0001 Nacho lable Time: 11:15:00 AM Dee Dee duran [facility] 15:48:07 Osteopor osis [id number] Completed 201003/22/2021 Osteopor osis;Rec orded Elsewher e: No Locat ion: [place] yoanna [facility] S ource: EHR Ripsaw Matcher jeffrey: N Tomti ce ID: 0001 Nacho lable Time: 03:30:00 PM Dee Dee duran [facility] 15:48:53 Problem Notes None recorded. Procedures Surgical History Date Name Laterality Status Provider Name and Address Organization Details Recorded Time 11/28/19 21 Date of Last Mammogram completed Dee Dee Ta [facility] 03/22/2021 15:49:44 11/28/19 21 [facility] 03/22/2021 15:49:55 02/23/20 20 Most Recent Bone Density completed [facility] 03/23/2021 10:27:26 12/26/19 20 Date of Last Pap Smear [facility] 03/22/2021 15:49:28 05/02/20 16 Date of Last Colonoscopy [facility] 03/23/2021 10:27:27 01/01/20 16 completed Dee Dee Chappell [facility] 03/22/2021 15:53:21 07/24/19 05 hysterectomy completed [facility] 12/25/2019 14:15:23 07/24/19 05 total abdominal hysterectomy with bilateral salpingo-oophore ctomy completed [facility] 12/25/2019 14:17:41 07/24/18 92 liposuction of subcutaneous tissue completed [facility] 12/25/2019 14:14:41 07/24/18 92 biopsy of breast completed [facility] 12/25/2019 14:14:35 Imaging Results Imaging Date Name Status LastModified by Organiz ation Details LastModified Time 11/27/2020 MAMMO, screening, bilateral completed [facility] [address], [place], [address], 12/13/2020 10:23:02 01/04/2022 imaging/diagnos tic result completed [facility] [address], [place], [address], 01/27/2022 17:19:28 06/01/2022 DEXA, axial skeleton + vertebral fracture assessment completed [email or web address] Information not available 06/01/2022 15:13:45 05/24/2023 MAMMO, screening, bilateral completed [address] [facility] [address], [place], [address], 07/27/2023 16:57:54 Procedure Notes None recorded. Medical [...] Elsewher e: No Locat ion: Mohsen lenz [facility] odify By: doug lindquistunter DateTime : 01/09/20 [...] mcg (50,000 unit) capsule take 1 capsule (29367GB ITS) by oral route every week 05/10 completed Prescrib ed Elsewher e: No Locat ion: [facility] odify By: doug lindquistunter DateTime : 01/23/20 13 10:47:56 AM Not Available Not Available Not Available Paxil 10 mg tablet take 1 tablet by oral route every day 09/16 completed Prescrib ed Elsewher e: Yes Loca tion: [facility] odify By: cameron Copeland r DateTime : [...] Elsewher e: Yes Loca tion: [facility] odify By: cameron Copeland r DateTime : [...] Prescrib ed Elsewher e: No Locat ion: [facility] odify By: melida samuel DateTime : 11/17/19 12 12:48:31 PM Not Available Not Available Not Available Fish Oil 100 mg-160 mg-1,000 mg capsule 05/10 completed Prescrib ed Elsewher e: Yes Loca tion: [facility] odify By: doug mcmahan DateTime : 06/30/20 11 03:30:00 PM Not Available Not Available Not Available Vitals Date Recorded Body height Body mass index (BMI) Body weight Systolic blood pressure Diastolic blood pressure Provider Name and Address Organization Details Last Updated DateTime 12/26/2019 172.72 cm 23.3 kg/m2 51232.63 g 123 mm[Hg] 81 mm[Hg] Cindy Bryson [facility] 0 10:16:10 Date Recorded Body height Body mass index (BMI) Body weight Systolic blood pressure Diastolic blood pressure Provider Name and Address Organization Details Last Updated DateTime 03/23/2021 172.72 cm 22.8 kg/m2 76009.86 g 122 mm[Hg] 81 mm[Hg] Dee Dee Chappell [facility] 1 10:26:58 Social History Question Answer Notes LastModified by Organizat ion Details LastModified Time Tobacco Smoking Status Current Every Day Smoker Dee Dee duran, [facility] 03/23/2021 10:27:32 Do You Have An Advance Directive? No [email or web address] Information not available 03/23/2021 What Is Your Level Of Alcohol Consumption? Occasional [email or web address] Information not available 12/26/2019 How Many Years Have You Consumed Alcohol? 40 [email or web address] Information not available 03/23/2021 Are You Blind Or Do You Have Difficulty Seeing? No [email or web address] Information not available 03/23/2021 What Is Your Level Of Caffeine Consumption? Occasional [email or web address] Information not available 03/23/2021 In The 14 Days Before Symptom Onset, Have You Had Close Contact With A Laboratory-confir med COVID-19 While That Case Was Ill? No [email or web address] Information not available 03/23/2021 In The 14 Days Before Symptom Onset, Have You Had Close Contact With A Person Who Is Under Investigation For COVID-19 While That Person Was Ill? No [email or web address] Information not available 03/23/2021 Have You Been To An Area Known To Be High Risk For COVID-19? No Information not available 03/23/2021 Are You Deaf Or Do You Have Serious Difficulty Hearing? No [email or web address] Information not available 03/23/2021 What Type Of Diet Are You Following? REGULAR Information not available 03/23/2021 Which Illicit Or Recreational Drugs Have You Used? Marijuana Edibles [email or web address] Information not available 03/23/2021 What Is The Highest Grade Or Level Of School You Have Completed Or The Highest Degree You Have Received? LT16166-2 Information not available 03/23/2021 What Is Your Occupation? Retired [email or web address] Information not available 03/23/2021 Are There Any Guns Present In Your Home? Yes Information not available 03/23/2021 Do You Use Your Seat Belt Or Car Seat Routinely? Yes [email or web address] Information not available 03/23/2021 Do You Have Smoke And Carbon Monoxide Detectors In Your Home? Yes [email or web address] Information not available 03/23/2021 Do You Feel Stressed (tense, Restless, Nervous, Or Anxious, Or Unable To Sleep At Night)? OS43535-1 [email or web address] Information not available 03/23/2021 Do You Use Sunscreen Routinely? Yes [email or web address] Information not available 03/23/2021 Sex: Unknown Functional Status Question Answer Note LastModified by Organization D etails LastModified Time Are you able to walk? YESWOREST [email or web address] Information not available 03/23/2021 What is your exercise level? Heavy Information not available 03/23/2021 Mental Status None recorded. Family History Relationship Description Onset Age of this Age Resolved Age Notes LastModified by Organization Details LastModified Time Maternal Aunt Family history of breast cancer 59 [email or web address] Not available 2020 10:27:05 Mother Family history of stroke [email or web address] Not available 2020 10:27:05 Sister Family history of breast cancer 37 mastec aries, T,N, M deceas ed [email or web address] Not available 03/23/2021 10:27:05 Sister Anxiety disorder Not available 2020 10:27:05 Unspecified Relation Malignant tumor of pharynx [email or web address] Not available 2020 10:27:05 Unspecified Relation Malignant neoplasm of brain [email or web address] Not available 2020 10:27:05 Medical History Condition [...] ICD10 Code Diagnosis Note [id number] Vivian Roa CNM [facility] [address] [address] 12/26/2019 09:54:15 01/15/2020 09:49:56 Gynecologic examination [id number] Z01.419 Take Calcium with Vitamin D 12-1500mg daily. Do monthly self breast exams. It is advised to get annual flu shot in the fall and she could obtain at [facility] or [facility] clinic. If you haven't received the Tdap [...] questions call or respond to this email. [id number] Vivian Roa, SAURAV [facility] [address] [address] 03/23/2021 10:02:57 03/23/2021 23:22:43 Mastodynia of bilateral breasts [id number] N64.4 Diagnostic cody and u/s ordered. If [...] Name 12/26/2019 1 [place] Sarah Souza [id number] Sarah Souza 12/26/2019 2 [employer] HE[employer]CARE OPTIONS (MEDICARE SUPPLEMENT) Sarah Souza [id number] Sarah Souza 03/23/2021 1 [place] Sarah Souza [id number] Sarah Souza 03/23/2021 2 [employer] HEALTHCARE OPTIONS (MEDICARE SUPPLEMENT) Sarah Souza [id number] Sarah Souza Notes Date Note Type Note [...] depression; No anxiety; No PMDD Vivian duran [facility] 01/02/2020 17:44:50 03/23/2021 text/html 2-3 weeks has ocasio d burning in both breasts. A little worse on the left. History of breast cancer. Vivian duran [facility] 03/23/2021 16:08:51 OBGyn Episode No OBEpisode recorded.
[2024-11-26 13:18] LABS: Hematocrit 38.9 % (37.0-47.0); Hemoglobin 12.6 g/dL (12.0-15.0)
[2024-11-26 13:39] LABS: INR 0.9; Prothrombin Time 13.1 Seconds (11.1-14.7)
[2024-11-26 13:40] LABS: Partial Thromboplastin Time 28.3 Seconds (22.3-36.8)
== END 2024-11-26 12:09 | disposition home or self-care (01) ==
LOC: ANHSURGERY 12:15
PROVIDERS: Anesthesiology; PCP Nurse Practitioner Family; Visit Provider Surgery Plastic and Reconstructive Surgery
DX: I12.9 Hypertensive chronic kidney disease with stage 1 through stage 4 chronic kidney disease, or unspecified chronic kidney disease (principal); N18.30 Chronic kidney disease, stage 3 unspecified; R31.29 Other microscopic hematuria; Z01.818 Encounter for other preprocedural examination; Z72.0 Tobacco use; E78.5 Hyperlipidemia, unspecified
CPT/HCPCS: 36415; 85014; 85018; 85610; 85730; 93005

== ENCOUNTER 2025-04-25 10:45 | Outpatient (CLI) | payer OTHER, SELFPAY ==
--- OUTSIDE RECORDS SUMMARY | 2025-04-25 10:56 | XMS_ITS | Patient Health Record ---
Author Organization [facility] [employer] [facility] Address [address] [facility] [address] [place] [address] Care Team Providers Care Communication Instructor Name Role Phone Darrion Santamaria Unavailable [phone] Reason For Referral No Information Medications Medication SIG (Take, Route, Frequency, Duration) Notes Start Date End Date Status Atorvastatin Calcium 10 MG Tablet Oral 07/04/2019 Active Ibandronate Sodium 150 MG Tablet Oral 07/04/2019 Active Benzonatate 100 MG Capsule Oral 07/04/2019 Active Escitalopram Oxalate 10 MG Tablet Oral 07/04/2019 Active Social History Social History Additional Details Category Social Info Options Details Migrated Social History Migrated Social History Alcohol Intake: Occasional 05/26/2020,Tobacco Years: Current every day smoker 05/26/2020,Smoking Status: 43 05/26/2020 Plan Of Treatment No Information Insurance Providers Payer Name Payer Address Payer Phone Subscriber Number Group Number Insured Name Patient Relationship to Insured Coverage Start Date Coverage End Date [employer] [employer] [address] [place] [address] [id number] TERRY QUINN Self - patient is the insured Medical (General) History Surgical History Surgery Date(Month/Year) Unlisted procedure breast () Hysterectomy/revise vagina (44368)
--- OUTSIDE RECORDS SUMMARY | 2025-04-25 10:56 | XMS_ITS | Clinical Summary ---
Author Organization [facility] Address [address] [place] [address] Care Team Providers Care Stock Chaser Name Role Phone Jeny Mclean MD Unavailable [phone] Bhaskar Castillo MD Primary Care Provider [phone] Allergies No known active allergies Medications atorvastatin [...] Status post Boniva therapy for 5 years [id number] Risk factors age, , postmenopausal, smoking Recommend fall precautions Recommend to keep working on her exercises, weight and balance training today Give instructions on how to be safe during her exercises - continue current calcium and vitamin-D supplementations - discussed about osteoporotic medication options - consider doing IV bisphosphonate therapy - will do IV Recl[facility] therapy at [facility] ( discussed mechanism of action, [...] on file Legal Sex Female 12:09 AM TRACK MANAGER Gender Identity Female 08/16/2019 3:57 PM TRACK MANAGER Sexual Orientation Straight 08/16/2019 3: 57 PM TRACK MANAGER Obstetrics History Last Filed Vital Signs Vital Sign Reading Time Taken Comments Blood Pressure 130/70 05/22/2023 10:30 AM CDT Pulse 74 05/22/2023 10:30 AM CDT Temperature 36.9 C (98.5 F) 04/12/2021 1:13 PM CDT Respiratory Rate 17 05/22/2023 10:30 AM CDT Oxygen Saturation - - Inhaled Oxygen Concentration - - Weight 68.9 kg (152 lb) 05/22/2023 10:30 AM CDT Height 170.2 cm (5' 7) 05/22/2023 10:30 AM CDT Body Mass Index [...] or PCV21) 02/03/2025 02/04/2020, 06/01/2016 Influenza Vaccine (#1) 2025 05/22/2017, 2014 Procedures Procedure Name Priority Date/Time Associated Diagnosis [...] Bone mineral density was performed on a [employer] Discovery Densitometer. Based on machine cross-calibration and [...] by the International Society of Clinical Densitometry. [id number] Eduardo Bundy MD IMG DXA PROCEDURES Final Result from Last 3 Months or Most Recently Relevant to Health Maintenance Insurance MEDICARE [facility] MEDICARE [facility] MEDICARE [facility] Care Teams Stock Chaser Relationship Specialty [place] [address] [facility] [address], [place] [address] PCP - General Family Practice 05/23/23 [place] [address] [address] Consulting Physician Endocrinology 05/23/23
[2025-04-25 11:18] LABS: Hematocrit 39.1 % (37.0-47.0); Hemoglobin 13.0 g/dL (12.0-15.0)
[2025-04-25 11:28] LABS: INR 1.0; Prothrombin Time 13.4 Seconds (11.1-14.7)
[2025-04-25 11:29] LABS: Partial Thromboplastin Time 27.8 Seconds (22.3-36.8)
[2025-04-25 11:34] LABS: Anion Gap 9 mmol/L (4-12); Blood Urea Nitrogen 25 mg/dL (7-17); Calcium 9.0 mg/dL (8.4-10.2); Carbon Dioxide 29 mmol/L (22-30); Chloride 100 mmol/L (98-107); Estimated Glomerular Filt Rate 45; Glucose 100 mg/dL (65-110); Potassium 4.1 mmol/L (3.4-5.0); Sodium 138 mmol/L (137-145)
== END 2025-04-25 10:46 | disposition home or self-care (01) ==
LOC: ANHSURGERY 10:50
PROVIDERS: Anesthesiology; PCP Nurse Practitioner Family; Visit Provider Surgery Plastic and Reconstructive Surgery
DX: N18.30 Chronic kidney disease, stage 3 unspecified (principal); K64.9 Unspecified hemorrhoids
CPT/HCPCS: 36415; 80048; 85014; 85018; 85610; 85730

== ENCOUNTER 2025-05-01 01:28 | Day surgery (SDC) | payer OTHER, SELFPAY ==
[2025-04-24 15:49] VITALS: BMI 24.5
--- NOTE | 2025-04-24 15:57 | PC.NURSE ---
[facility] has started construction of its new state of the art ER which will open Spring 2026. With this, we anticipate parking may be a challenge for some our surgical patients and families. Parking spaces are limited but are available for all Surgical, obstetrics, and ER patients sharing this lot. If you arrive and find you are having a hard time finding a parking space, please note that we understand the challenges, please drive around the hospital and park near Hospital Entrance 1. When you enter this entrance, you can ask a volunteer to direct or take you back to the surgical waiting area to check in. We appreciate everyone?s understanding of these expected challenges while we build for your future. Report to the Outpatient Waiting Room, entrance under the green pavilion located off [address], at time ___06:00am____ on date _05/01/25 . Planned Procedure Time: _07:30am .? Time changes happen often and if your time is changed the preop area will call you the afternoon before. - You and your visitor will be asked to self-screen and do not enter if you have any COVID symptoms. Please call surgeon if you need to reschedule. - A mask is optional within the hospital at this time. Patients may have clear liquids (water, carbonated beverages, clear teas, apple juice) until 3 hours prior to surgery with a maximum of 20 ounces. - No food from midnight until time of surgery and no smoking, or chewing tobacco (or any form of nicotine). No chewing gum, candy or mints. (04:30am) Take only the following medications with a SIP of water on the morning of surgery: __Antianxiety medication as needed Hydroxyzine and Valium. DO NOT STOP ANY OF YOUR OTHER PRESCRIPTION MEDICATIONS PRIOR TO SURGERY EXCEPT THE FOLLOWING Hold all vitamins and supplements for 3 days per anesthesiologist. Date of last dose is 04/27/25 Medications to discontinue per physician NONE Date to take last dose NONE Please no make-up, nail greek, hairspray, perfume, deodorant, or body powder the day of surgery.? No jewelry (including any body piercings) or valuables the day of surgery, leave them at home.? Please take a shower or bath the night before, or the morning of, surgery with an antibacterial soap.? Wear comfortable, loose fitting clothing.? - Jewelry must be removed prior to entering the operating room.? Rings and piercings that are not removed may be cut off. - The hospital will not accept responsibility for valuables.? - Please leave all valuables, including medications, at home the day of surgery. If you are going home after surgery, a licensed escort vehicle driver must drive you home.? - NO public transportation without another adult if you receive anesthesia. - We recommend that an adult stay with you for 24 hours following discharge. - We also recommend that you do not drive, make important decision, drink alcoholic beverages, or take any drugs that were not prescribed by your health care provider for at least 24 hours after your discharge time. Follow any additional instructions given to you from your surgeon. Telephone instructions given to ____Patient and asked if any additional questions and then verbalized understanding. Patient advised to call surgeon office or pre surgery nurse liaison [phone] if any additional questions.
[2025-05-01] VITALS (9 sets, daily range): BP systolic 117–146; BP diastolic 59–90; PULSE 90–99; RESP 14–20; TEMP 36.8–36.9; O2SAT 93–100; BMI 24.2
--- NOTE | 2025-05-01 06:59 | WPDANESEPPF ---
Anes - Initial Pre Proc Eval Procedure: Operation Date: 05/01/25 07:30 Proposed Procedures p Abdominoplasty with Liposuction - Leno Lopez MD Date/Time: 05/01/25 06:59 Surgeon: Leno Lopez MD Pre Op Diagnosis: skin laxity Patient Data Age: 69 Gender: F Height: 1.71 m Weight: 71.1 kg Last Vital Signs Temp 36.8 C 05/01/25 06:08 Pulse 90 05/01/25 06:08 Resp 18 05/01/25 06:08 BP 146/90 H 05/01/25 06:08 Pulse Ox 97 05/01/25 06:08 O2 Del Method Room Air 05/01/25 06:08 Allergies Allergy/AdvReac Type Severity Reaction Status Date / Time adhesive tape Allergy Mild Rash Verified 04/30/25 07:47 Home Medications ?Medication ?Instructions ?Recorded ?Confirmed ?Type azelastine 137 mcg (0.1 %) nasal 2 spray intranasal Q12H #30 mL 06/10/24 04/30/25 Rx spray ascorbic acid (vitamin C) 500 mg 500 mg PO DAILY 11/22/24 04/30/25 History chewable tablet (Acerola C) nutritional supplement-fiber oral 1 ea PO DAILY 11/22/24 04/30/25 History liquid hydroxyzine HCl 25 mg tablet See Rx Instructions .Route 01/09/25 04/30/25 Rx .COMPLEX #60 tabs escitalopram oxalate 10 mg tablet 10 mg PO DAILY #90 tabs 01/31/25 04/30/25 Rx atorvastatin 40 mg tablet 40 mg PO DAILY #90 tabs 03/31/25 04/30/25 Rx diazepam 5 mg tablet 5 mg PO .as needed anxiety 04/24/25 04/30/25 History fluticasone propionate 50 2 spray intranasal BID #16 mL 04/30/25 04/30/25 Rx mcg/actuation nasal spray,suspension (Flonase Allergy Relief) methylprednisolone 4 mg tablets in See Rx Instructions PO PER PKG DIR 04/30/25 04/30/25 Rx a dose pack (Medrol (John)) #21 ea Laboratory Tests 05/01/25 06:15 Cotinine Negative Patient hx anesthesia problems: none Family hx anesthesia problems: none Results Review: All pre-operative results and documents have been reviewed as part of the pre-operative evaluation. [facility] Past Medical History Medical History History of mitral valve prolapse CKD (chronic kidney disease) stage 3, GFR 30-59 ml/min Tobacco use Encounter for cosmetic surgery Osteopenia Anxiety Dyslipidemia Surgical History Surgical History History of hysterectomy History of tonsillectomy Social History Social History Smoking packs per day: 0.2 Smoking cigarettes per day: 4.0 Years smoked: 50 Smoking pack-years: 10.00 Smoking status: Former smoker Tobacco type: cigarettes Second hand tobacco smoke exposure: Yes Smoking end date: 06/07/24 Additional smoking assessment comments: denies any nicotine Alcohol intake: current Alcohol use details: 1 per month Substance use: current Substance use type: marijuana Other substance usage details: edibles few times a week Do You Feel Safe in your Home?: Yes Lack of Transportation: No Lack of Food: Never True Current Housing: I Have Housing Concerned About Future Housing: No Difficulty Paying Gas/Electric Bills: No Difficulty Paying for Meds: No Currently Unemployed: No Education: Associate Degree Difficulty w/ Childcare or Family Care: No Living arrangements: with family Additional living arrangements comments: Occupation/Education: retired Gender identity (if verbalized by the patient): Female Sexual Orientation (if Verbalized by the Patient): Straight or Heterosexual Spiritual care concerns: No Agree to blood products: Yes Anes - Eval Final PreProcedure Day of Procedure 05/01/25 06:59 Patient weight: normal Heart: regular rate and rhythm Lungs: clear to auscultation Airway: Mallampati scale class 1 Neurological: alert and oriented Last oral intake: >/= 8 hours ASA classification: III Emergent: no Anesthetic plan: proceed Anesthesia type and monitoring: general ETT and standard monitoring Results Review: All pre-operative results and documents have been reviewed as part of the pre-operative evaluation. Informed Consent: The patient's anesthetic plan and its attendant risks and benefits were discussed with the patient/family/POA. Questions were solicited and answers provided to the satisfaction of the patient/family/POA.
[2025-05-01] MEDS: LACTATED RINGERS 1,000 ML 30 ML IV CONT ×2 (07:00→11:49)
--- NOTE | 2025-05-01 07:05 | WPDHPUPDATE1 ---
History and Physical Update Update Date/Time: 05/01/25 07:05 History and Physical has been reviewed, including an updated exam of the patient. There are NO changes in the patient's condition. Risks, benefits, and alternatives have been discussed and questions answered. Patient agrees to proceed with procedure.
--- NOTE | 2025-05-01 07:07 | W.PM.PROC2 ---
Procedure Note - Detailed Date of Procedure 05/01/25 Pre-op Diagnosis skin laxity Post-op Diagnosis Same Procedure Performed Progressive tension abdominoplasty with suction lipectomy Surgeon Leno Lopez MD Anesthesia General Findings Lipoaspirate: 1,500 cc Tissue removed: 477 grams Description of Procedure They are here today for the above procedures. Previously and again today the risks, benefits, alternatives were discussed in extensive detail. I wanted them to be very realistic about the risks involved as well as expectations. I was very clear and upfront how her previous liposuction increases risks of complications and affects her outcome. She may require a vertical incision as well due to limited abdominal tissue mobility. We discussed aftercare and what to monitor for. I was very upfront about the risks of wound breakdown leading to loss of skin, open wounds, and need for additional procedures with permanent abdominal deformity. We discussed DVT/PE risks and management. Made sure answered all of their questions to their satisfaction today and consent was obtained. They were marked in the preoperative holding area with their verification. The patient was taken to the operating room. Anesthesia was provided by anesthesiology. A Brooks catheter was started. Placed prone on the operating room table with care taken to protect from injury. Prepped and draped in a standard sterile fashion. A surgical time-out was taken. Stab incisions were made and tumescent solution was infiltrated. Once adequate time was allowed for hemostasis a 5mm basket and 4mm otto cannula were utilized to complete suction lipectomy based on S.A.F.E. technique in multiple planes and passes. Suction lipectomy continued to result based on pre-operative planning, intra-operative observation, and rolling pinch test which were in full agreement. Patient was then placed supine with care taken to protect from injury. I placed the patient in a flexed position to verify the upper and lower markings would reach. I then placed supine. A thorough abdominal examination was completed. Stab incisions were made and tumescent solution infiltrated. Stab incisions were made and tumescent solution was infiltrated. Once adequate time was allowed for hemostasis a 5mm basket and 4mm otto cannula were utilized to complete suction lipectomy based on S.A.F.E. technique in multiple planes and passes. Suction lipectomy continued to result based on pre-operative planning, intra-operative observation, and rolling pinch test which were in full agreement. A 10 blade was used to make the upper incision. I continued dissection down to the level of fascia. Elevated just what was necessary for repair of the diastasis. I then again flexed the bed to verify the upper skin flap would reach the lower markings without tension. Once verified I placed her supine once again and a 10 blade used to make the lower incision. I elevated up to level the umbilicus and left the umbilicus intact on a well-vascularized stalk. The intervening tissue was removed. A 2 mm blunt cannula with 0.5% bupivacaine was injected deep to the fascia bilaterally. I plicated the diastasis recti using 0 PDO Stratafix barbed suture. This was in 2 separate layers using 2 separate sutures as well. After the patient was flexed (below) plicated the fascia with 0 PDO Stratafix in two separate layers. The patient was flexed and starting from superior to inferior began plication using 2-0 Vicryl to obliterate all space in a standard progressive tension fashion. At the umbilicus I marked out the location of the skin and inset this with 3-0 Monocryl and 4-0 Vicryl. I continued the remainder of the plication using 2-0 Vicryl until I reached my lower planned scar line. I trimmed any excess skin of the upper flap making sure this was a tension-free closure. This left a small vertical scar which was closed with 2-0 Vicryl, 3-0 Monocryl, 4-0 Monocryl, and tissue glue. 15 Nii drain was placed. I then approximated using a 3 point suture with 2-0 Vicryl followed by 2-0 PDO Stratafix, 3-0 Stratafix ,running subcuticular 4-0 Monocryl, and tissue glue. Fluffs and an abdominal binder were placed. The patient was transferred to the bed in a flexed position. [place] and taken to the PACU without difficulty. All instrument and sponge counts were correct at the end of the case. Estimated Blood Loss 75 Drains Yes (15 Nii) Packing No Pathology None sent Complications No immediate complications Condition Stable Disposition PACU
[2025-05-01] MEDS: TRANEXAMIC ACID 1,000MG/ISO100 1,000 MG/100 ML BAG 200 MG IVPB (07:10)
[2025-05-01] MEDS: ceFAZolin 2 GM in SODIUM CHLORIDE 0.9% IV 50 ML 100 ML IVPB (07:33)
[2025-05-01] MEDS: BUPIVACAINE/EPINEPHRINE 0.5% 50 ML VIAL 60 ML INFILTRATE (07:33)
[2025-05-01] MEDS: ONDANSETRON INJ 4 MG/2 ML VIAL IV PUSH (12:13)
[2025-05-01] MEDS: fentaNYL CITRATE INJ (*CRX) 100 MCG/2 ML VIAL 25 MCG IV PUSH ×2 (12:15→12:20)
[2025-05-01] MEDS: oxyCODONE HCL (*CRX) 5 MG TAB IR PO (13:11)
--- NOTE | 2025-05-01 13:38 | SUR.PHASEII ---
PATIENT AND SHOWN HOW TO EMPTY DEVIN DRAIN AND COMPRESS TO CREATE SUCTION.
== END 2025-05-01 13:59 | disposition home or self-care (01) ==
PROVIDERS: PCP Nurse Practitioner Family; Visit Provider Surgery Plastic and Reconstructive Surgery
PROC: (CPT 15830; principal; 2025-05-01 07:30)
DX: Z41.1 Encounter for cosmetic surgery (principal); L57.4 Cutis laxa senilis; E78.00 Pure hypercholesterolemia, unspecified; G47.33 Obstructive sleep apnea (adult) (pediatric); I12.9 Hypertensive chronic kidney disease with stage 1 through stage 4 chronic kidney disease, or unspecified chronic kidney disease; N18.30 Chronic kidney disease, stage 3 unspecified; F41.9 Anxiety disorder, unspecified; N28.9 Disorder of kidney and ureter, unspecified; M85.88 Other specified disorders of bone density and structure, other site; F12.90 Cannabis use, unspecified, uncomplicated; Z79.891 Long term (current) use of opiate analgesic; Z98.890 Other specified postprocedural states; Z87.891 Personal history of nicotine dependence
CPT/HCPCS: 15830; 15847; 15877; 80307; J0690; A9270; J0166; J1100; J1171; J1200; J2003; J2250; J2405; J2704; J3010; J3290; J7120